=== PATIENT | female | born 1930 | race Caucasian/White ===

== ENCOUNTER 2016-10-16 17:57 | Inpatient (IN) | payer OTHER ==
[2016-10-16 18:00] VITALS: BMI 20.5
[2016-10-16] MEDS ORDERED: Nitroglycerin 2% Ointment Foilpak UD TOP STA (18:00)
[2016-10-16 18:39] LABS: BASO % 0.3 % (0.0-2.0); EOS % 0.5 % (0.0-4.0); HEMOGLOBIN 12.9 g/dL (11.0-16.0); LYMPH # 0.9 K/uL (1.0-4.3); LYMPH % 10.6 % (20.0-40.0); MEAN CORPUSCULAR HEMOGLOBIN 28.5 pg (27.0-31.0); MEAN CORPUSCULAR HGB CONC 33.9 g/dL (33.0-37.0); MEAN PLATELET VOLUME 7.5 fL (7.2-11.7); MONO # 0.5 K/uL (0.0-0.8); MONO % 6.4 % (0.0-10.0); NEUT % 82.2 % (50.0-75.0); RBC 4.54 Mil/uL (3.80-5.20); RED CELL DISTRIBUTION WIDTH 12.9 % (11.5-14.5); WHITE BLOOD COUNT 8.5 K/uL (4.8-10.8)
--- NOTE | 2016-10-16 18:44 | CT ---
EXAM: CT Head Without Intravenous Contrast CLINICAL HISTORY: 86 years old, female; Signs and symptoms; Altered mental status/memory loss; Confusion or disorientation; Additional info: Code stroke TECHNIQUE: Axial computed tomography images of the head/brain without intravenous contrast. This CT exam was performed using one or more of the following dose reduction techniques: automated exposure control, adjustment of the mA and/or kV according to patient size, and/or use of iterative reconstruction technique. Coronal and sagittal reformatted images were created and reviewed. EXAM DATE/TIME: 10/16/2016 5:59 PM COMPARISON: There are no prior studies for comparison. FINDINGS: Brain: There is dilatation of sulci gyri and ventricles. There is no midline shift. There is decreased attenuation in periventricular white matter. There are focal age indeterminate infarcts in periventricular white matter bilaterally. There is an age-indeterminate left basal ganglia lacunar infarct. There are no focal masses. There is an 11.3 x 7.9 mm hyperdense lesion in the right sylvian fissure,, image 168 series 602 There is a small focal area of increased attenuation in the left frontal lobe suggesting subarachnoid hemorrhage, image 135 series 602, image 24 series 2. Barrios-white differentiation is visualized. Ventricles: See above Bones: Cranial vault is intact. Soft tissues: unremarkable Sinuses: There is no acute sinusitis. Ears and mastoids: Middle ears and mastoids are unremarkable. Orbits: Orbital contents are unremarkable. IMPRESSION: Atrophy and small vessel disease; probable subarachnoid hemorrhage in the right sylvian fissure and small amount of subarachnoid blood blood in the left frontal lobe; age indeterminate periventricular white matter and left basal ganglia lacunar type infarcts
[2016-10-16 18:47] LABS: INR 1.1; PROTHROMBIN TIME 12.2 SECONDS (9.7-12.2)
[2016-10-16 18:48] LABS: ALBUMIN 4.2 g/dL (3.5-5.0)
[2016-10-16 18:51] LABS: ALB/GLOB RATIO 1.1 (1.0-2.1); GFR AFRICAN-AMERICAN > 60; GFR NON-AFRICAN AMERICAN > 60
[2016-10-16 18:52] LABS: ALT/SGPT 31 U/L (9-52); AST/SGOT 39 U/L (14-36); BLOOD UREA NITROGEN 16 mg/dL (7-17); CALCIUM 8.9 mg/dl (8.6-10.4)
[2016-10-16 18:53] LABS: HDL CHOLESTEROL 64 mg/dL (30-70)
[2016-10-16] MEDS ORDERED: Sodium Chloride 0.9% 1,000 ML IV STA (18:56)
[2016-10-16 19:05] LABS: LDL CHOLESTEROL 109 mg/dL (0-129)
[2016-10-16] MEDS ORDERED: Sodium Chloride 0.9% 1,000 ML ONE (19:36)
--- NOTE | 2016-10-16 19:48 | C.PDOC ---
History Of Present Illness 86 year old female who presents to the ER after she fell at home in her kitchen and suffered a contusion to the right side of her face. Patient had worsening mental status during the day; she reports also falling while standing yesterday. Patient reports she recently came from [place] a few months ago and is currently living with her family. Denies headache, nausea, or vomiting. Time Seen by Provider: 10/16/16 17:59 Chief Complaint (Nursing): Altered Mental Status History Per: Patient History/Exam Limitations: None Onset/Duration Of Symptoms: Hrs Current Symptoms Are (Timing): Still Present Usual Baseline: Unknown Use Of Anticoag/Antiplatelets: Unknown Speech Is: Normal Recent travel outside of the [place]: No Associated Symptoms: denies: Headache, Vomiting, Other (Nausea) Past Medical History Reviewed: Historical Data, Nursing Documentation, Vital Signs Vital Signs: Last Vital Signs Temp 97.6 F 10/16/16 18:01 Pulse 94 H 10/16/16 20:21 Resp 18 10/16/16 20:21 BP 178/85 H 10/16/16 20:21 Pulse Ox 100 10/16/16 22:39 - Medical History PMH: HTN Surgical History: No Surg Hx Family History: States: Unknown Family Hx - Social History Hx Alcohol Use: No Hx Substance Use: No - Immunization History Hx Tetanus Toxoid Vaccination: No Hx Influenza Vaccination: No Hx Pneumococcal Vaccination: No Review Of Systems Gastrointestinal: Negative for: Nausea, Vomiting Neurological: Negative for: Headache, Dizziness Physical Exam - Physical Exam Appears: Non-toxic, Confused, Other (C-collar in place) Skin: Normal Color, Warm, Dry Head: Atraumatic, Normacephalic Eye(s): bilateral: Normal Inspection, PERRL, EOMI Oral Mucosa: Moist Neck: Normal, No Midline Cervical Tenderness, No Paracervical Tenderness, Supple Chest: Symmetrical, No Tenderness Cardiovascular: Rhythm Regular, No Murmur Respiratory: Normal Breath Sounds, No Rales, No Rhonchi, No Wheezing Gastrointestinal/Abdominal: Soft, No Tenderness Neurological/Psych: Oriented x3, Normal Speech, Normal Cognition ED Course And Treatment - Laboratory Results Result Diagrams: 10/16/16 18:35 10/16/16 23:16 O2 Sat by Pulse Oximetry: 100 (Room air) Pulse Ox Interpretation: Normal - CT Scan/US CT Cervical Spine Other Rad Studies (CT/US): Read By Radiologist, Radiology Report Reviewed CT/US Interpretation: IMPRESSION: No acute findings CT Head Other Rad Studies (CT/US): Read By Radiologist, Radiology Report Reviewed CT/US Interpretation: IMPRESSION: Atrophy and small vessel disease; probable subarachnoid hemorrhage in the right. sylvian fissure and small amount of subarachnoid blood blood in the left frontal lobe; age. indeterminate periventricular white matter and left basal ganglia lacunar type infarcts Progress Note: Cervical spine CT, EKG, and CXR ordered. Nitroglyercin, potassium , and IV fluids administered. Code Stroke called at 6pm. Discussed with , Neurosurgery manager employee relations at 7pm. Discussed with , ICU internet site designer manager employee relations at 7:30pm. NIHSS Stroke Scale - Date/Time Evaluation Performed Date Performed: 10/16/16 Time Performed: 18:00 - How Severe is the Stoke Level of Consciousness: 2=Obtunded LOC to Questions: 2=Neither correct LOC to commands: 2=Neither correct Best Gaze: 2=Forced deviation Visual: 0=No visual loss Facial: 0=Normal Motor Arm - Left: 0=No drift Motor Arm - Right: 0=No drift Motor Leg - Left: 0=No drift Motor Leg - Right: 0=No drift Limb Ataxia: 0=Absent Sensory: 0=Normal Best Language: 2=Severe aphasia Dysarthia: 2=Severe, near unintelligible or worse Extinction & Inattention (Neglect): 0=Normal, no object Score: 12 Severity Of Stroke: 5-15= Moderate Stroke rTPA Inclusion/Exclusion - Refusal of Treatment Patient Refused Treatment: No - Inclusion Criteria for Altepase Patient is 18 years or Older: Yes Clinical DX Ischemic Stroke Cause Neurological Deficit: Yes Time of Onset Established Less Than 270 Mins Before TX Begin: Yes Risk/Benefit Discussed With Patient/Family Member Present: No - Exclusion Criteria for Altepase Uncontrolled Hypertension at Time of TX (SBP>185 or DBP>110): Yes Active Internal Bleeding: Yes Known Bleeding Diathesis: No Evidence of an Intracranial Hemorrhage: Yes Evidence Major Acute Infarct w/ Signs Greater Than 1/3 MCA: No Suspicion of Subarachnoid Bleed on PreTX Eval(CT: neg bleed): No Medical Decision Making Medical Decision Making: no pmd, came from [place] 2016 no regular meds scant diet, drinks lots of milk @ home. prefers DNR, today's items seem reversible. NTP and NiCARDIPINE drip for BP control, titrate in ICU pt seems dry, gentle hydration w NS @ 100 cc/hr, continue in ICU 1900: d/w Dr. Pacheco- NSGY, ok to repeat CT in AM, will follow C-spine CT on way to ICU- remove c-collar in ICU 1999: d/w Dr. Grigsby- Medicine customer professional- defers to Hospitalist 2015: d/w Dr. Yamil Joy, IM, ok to ICU Disposition Doctor Will See Patient In The: Hospital Counseled Patient/Family Regarding: Studies Performed, Diagnosis - Disposition Disposition: HOSPITALIZED Disposition Time: 20:00 Condition: FAIR - POA Present On Arrival: Falls Or Trauma Core Measure Indicators: Code Stroke - Clinical Impression Clinical Impression: Subarachnoid hemorrhage, Traumatic brain injury, Hyponatremia, Uncontrolled hypertension - Scribe Statement The provider has reviewed the documentation as recorded by the Scribe Higinio Esqueda All medical record entries made by the Scribe were at my direction and personally dictated by me. I have reviewed the chart and agree that the record accurately reflects my personal performance of the history, physical exam, medical decision making, and the department course for this patient. I have also personally directed, reviewed, and agree with the discharge instructions and disposition.
[2016-10-16 20:05] LABS: URINE BACTERIA RARE (<OCC); URINE BILIRUBIN NEGATIVE (NEGATIVE); URINE BLOOD NEGATIVE (NEGATIVE); URINE CLARITY Clear (Clear); URINE COLOR Yellow (YELLOW); URINE GLUCOSE (UA) NORMAL (Normal); URINE LEUKOCYTE ESTERASE NEG Leu/uL (Negative); URINE NITRATE NEGATIVE (NEGATIVE); URINE PROTEIN NEGATIVE (NEGATIVE); URINE UROBILINOGEN NORMAL mg/dL (0.2-1.0)
[2016-10-16] MEDS: niCARdipine IV 25 MG in Sodium Chloride 0.9% 240 ML IV SCH (20:30)
--- NOTE | 2016-10-16 21:01 | CP.CCUPN ---
CCU Subjective - Physician Review Events Since Last Encounter (Free Text): 10/16/16 23:47 The Patient was seen and examined at the bedside, Medical records reviewed, all clinical/lab/hemodynamic/radiographic data were reviewed and management issues were discussed and formulated, Events reviewed 86 Y/O F with PMHx of HTN who presents to the ER for evaluation of Altered Mental Status Patient had a mechanical fall at home in her kitchen resulting contusion to the right side of her face. Patient had worsening mental status during the day, Had Head CT scan in ER showing probable subarachnoid hemorrhage in the right. Labs revealed hyponatremia and hypokalemia Neurosurgery was consulted Started on normal saline and cardene drip Currently she is alert, awake, follow basic commands No signs of pain noted at this time, breathing comfortable and unlabored. She was admitted to ICU for further neurological work up and waxing and weaning of mental status, placed on Q1H Neuro check And to address uncontrolled BP CCU Objective - Vital Signs / Intake & Output Vital Signs (Last 4 hours): Vital Signs Pulse Resp BP Pulse Ox 10/16/16 20:16 100 10/16/16 19:56 83 12 99 10/16/16 19:25 79 15 165/82 H 99 - Medications Active Medications: Active Medications Generic Name Dose Route Start Last Admin Trade Name Freq PRN Reason Stop Dose Admin Sodium Chloride 1,000 mls @ 100 mls/hr 10/16/16 18:56 10/16/16 19:35 Sodium Chloride 0.9% IV 10/17/16 04:55 100 mls/hr .Q10H STA Administration Nicardipine HCl 25 mg/ Sodium 250 mls @ 50 mls/hr 10/16/16 19:15 10/16/16 20: 30 Chloride IV 5 mg/hr .Q5H RETA 50 mls/hr Protocol Administration 5 MG/HR - Patient Studies Lab Studies: Lab Studies 10/16/16 Range/Units 19:56 Urine Color Yellow (YELLOW) Urine Clarity Clear (Clear) Urine pH 7.0 (5.0-8.0) Ur Specific [place] 1.009 (1.003-1.030) Urine Protein Negative (NEGATIVE) mg/dL Urine Glucose (UA) Normal (Normal) mg/dL Urine Ketones Negative (NEGATIVE) mg/dL Urine Blood Negative (NEGATIVE) Urine Nitrate Negative (NEGATIVE) Urine Bilirubin Negative (NEGATIVE) Urine Urobilinogen Normal (0.2-1.0) mg/dL Ur Leukocyte Esterase Neg (Negative) S[place]/uL Urine WBC (Auto) 1 (0-5) /hpf Urine Bacteria Rare (<OCC) Laboratory Results - last 24 hr 10/16/16 19:56 Urine Color Yellow Urine Clarity Clear Urine pH 7.0 Ur Specific [place] 1.009 Urine Protein Negative Urine Glucose (UA) Normal Urine Ketones Negative Urine Blood Negative Urine Nitrate Negative Urine Bilirubin Negative Urine Urobilinogen Normal Ur Leukocyte Esterase Neg Urine WBC (Auto) 1 Urine Bacteria Rare Fingerstick Blood Sugar Results: 158 Assessment/Plan - Assessment and Plan (Free Text) Assessment: Subarachnoid hemorrhage, Traumatic brain injury Hyponatremia, Uncontrolled hypertension Admit to ICU, Admit to ICU for close observation and serial sodium level examination BP control with cardene drip Frequent Neuro check Neurology and neurosurgery consult Close monitoring of respiratory status Fall & aspiration and Seizure precautions NPO Speech and swallow evaluation PT/OT evaluation Neurology consult Consider EEG IV Hydrations Blood glucose checked, controlled Telemetry monitoring to assess for afib though low suspicion for embolus Repeat head CT scan HOB elevation 30 degrees DVT ppx: SCS Code: Full
[2016-10-16 23:33] LABS: ALBUMIN 3.9 g/dL (3.5-5.0)
[2016-10-16 23:36] LABS: ALT/SGPT 30 U/L (9-52); AST/SGOT 40 U/L (14-36); BLOOD UREA NITROGEN 12 mg/dL (7-17); GFR AFRICAN-AMERICAN > 60; GFR NON-AFRICAN AMERICAN > 60
[2016-10-16 23:37] LABS: CALCIUM 7.9 mg/dl (8.6-10.4)
[2016-10-17] MEDS: niCARdipine IV 25 MG in Sodium Chloride 0.9% 240 ML IV SCH ×5 (00:51→20:15)
[2016-10-17 04:06] LABS: ALBUMIN 3.7 g/dL (3.5-5.0)
[2016-10-17 04:09] LABS: ALT/SGPT 25 U/L (9-52); AST/SGOT 51 U/L (14-36); BLOOD UREA NITROGEN 9 mg/dL (7-17); GFR AFRICAN-AMERICAN > 60; GFR NON-AFRICAN AMERICAN > 60
[2016-10-17 04:10] LABS: CALCIUM 7.4 mg/dl (8.6-10.4)
[2016-10-17] MEDS ORDERED: Sodium Chloride 3% 500 ML IV ONE (06:00)
[2016-10-17 06:25] LABS: BASO % 0.2 % (0.0-2.0); EOS % 0.3 % (0.0-4.0); HEMOGLOBIN 12.2 g/dL (11.0-16.0); LYMPH # 0.9 K/uL (1.0-4.3); LYMPH % 9.7 % (20.0-40.0); MEAN CELL VOLUME 83.2 fL (81.0-99.0); MEAN CORPUSCULAR HEMOGLOBIN 28.4 pg (27.0-31.0); MEAN CORPUSCULAR HGB CONC 34.1 g/dL (33.0-37.0); MEAN PLATELET VOLUME 7.5 fL (7.2-11.7); MONO # 0.8 K/uL (0.0-0.8); MONO % 8.1 % (0.0-10.0); NEUT # 7.6 K/uL (1.8-7.0); NEUT % 81.7 % (50.0-75.0); PLATELET COUNT 260 K/uL (130-400); RBC 4.29 Mil/uL (3.80-5.20); RED CELL DISTRIBUTION WIDTH 12.8 % (11.5-14.5); WHITE BLOOD COUNT 9.3 K/uL (4.8-10.8)
--- NOTE | 2016-10-17 08:21 | RAD ---
HISTORY: code stroke COMPARISON: No prior. FINDINGS: LUNGS: Suboptimal study due to rotation. Suspicious for enlargement of the right hilum or perihilar opacity. PLEURA: No significant pleural effusion identified, no pneumothorax apparent. CARDIOVASCULAR: Normal. OSSEOUS STRUCTURES: No significant abnormalities. VISUALIZED UPPER ABDOMEN: Normal. OTHER FINDINGS: None. IMPRESSION: Baseline suboptimal study due to patient's rotation. Suspicious for mild enlargement of the right hilum or small perihilar opacity. Follow-up exam is suggested.
[2016-10-17 08:30] LABS: LYMPHOCYTE 9 % (20-40); MONOCYTE 7 % (0-10); NEUTROPHIL 84 % (50-75); PLATELET ESTIMATE NORMAL (NORMAL); TOTAL CELLS COUNTED 100
[2016-10-17 08:31] LABS: ANISOCYTOSIS SLIGHT; TOXIC GRANULATION PRESENT
[2016-10-17 08:32] LABS: LARGE PLATELETS PRESENT
[2016-10-17 08:36] LABS: BURR CELLS SLIGHT; GIANT PLATELETS PRESENT; POIKILOCYTOSIS SLIGHT
[2016-10-17 08:40] LABS: OVALOCYTES SLIGHT
--- NOTE | 2016-10-17 10:23 | CT ---
PROCEDURE: CT Cervical Spine without contrast HISTORY: Trauma status post fall change in MS neck tenderness COMPARISON: None available. TECHNIQUE: Axial computed tomography images were obtained of the cervical spine without the use of intravenous contrast. Coronal and sagittal reformatted images were created and reviewed. Radiation dose: Total exam DLP = 192.28 mGy-cm. This CT exam was performed using one or more of the following dose reduction techniques: Automated exposure control, adjustment of the mA and/or kV according to patient size, and/or use of iterative reconstruction technique. FINDINGS: VERTEBRAE: No fracture. Normal alignment. No destructive bony lesion. DISCS/SPINAL CANAL/NEURAL FORAMINA: There are moderate to severe spondylosis. Multilevel of osteophyte disc bulging complex seen associated with mild spinal and neural foraminal narrowing. There are also multilevel moderate to severe narrowing of the disc is space more prominent at C3-C4. PARASPINAL SOFT TISSUES: Unremarkable. OTHER FINDINGS: Almost complete opacification of the left sphenoid sinus IMPRESSION: No evidence of acute displaced fracture. Moderate to mildly severe spondylosis associated with multilevel osteophyte disc bulging complex which resulting in mild spinal and neural foraminal narrowing.
--- NOTE | 2016-10-17 11:00 | CT ---
PROCEDURE: CT HEAD WITHOUT CONTRAST. HISTORY: reassess traumatic SAH COMPARISON: Comparison is made to the previous study dated 10/16/2016 TECHNIQUE: Axial computed tomography images were obtained through the head/brain without intravenous contrast. Radiation dose: Total exam DLP = 859.93 mGy-cm. This CT exam was performed using one or more of the following dose reduction techniques: Automated exposure control, adjustment of the mA and/or kV according to patient size, and/or use of iterative reconstruction technique. FINDINGS: HEMORRHAGE: Interval increase in the size of the previously seen right temporal frontal parietal subarachnoid hemorrhage. The foci of subarachnoid hemorrhage are larger and more conspicuous compared to the previous study. There is subdural hematoma at the posterior right convexity adjacent to the occipital lobe and posterior parietal lobe with maximum thickness of 4.5 millimeter. BRAIN: No mass effect or edema. Moderate atrophy and moderate chronic microvascular white matter ischemic disease are again seen. VENTRICLES: Unremarkable. No hydrocephalus. CALVARIUM: Unremarkable. PARANASAL SINUSES: Partial opacification of the left sphenoid sinus is noted. MASTOID AIR CELLS: Unremarkable as visualized. No inflammatory changes. OTHER FINDINGS: None. IMPRESSION: Interval worsening of right brain subarachnoid hemorrhage with interval appearance of new foci of subarachnoid hemorrhage at the right frontal and parietal lobes compared to the previous exam. Small subdural hematoma at the posterior right convexity adjacent to the occipital lobe with maximum thickness of 4.5 millimeter. Follow-up reassessment is recommended. No CT evidence of territorial infarct. Moderate atrophy and moderate chronic microvascular white matter ischemic disease. These findings were reported to the nurse taking care of the patient Mrs. Sterling at 10:50 a.m. on 10/17/2016.
[2016-10-17 13:40] LABS: GFR AFRICAN-AMERICAN > 60; GFR NON-AFRICAN AMERICAN > 60
[2016-10-17 13:41] LABS: BLOOD UREA NITROGEN 8 mg/dL (7-17); CALCIUM 7.8 mg/dl (8.6-10.4)
[2016-10-17 13:47] LABS: OSMOLALITY,URINE 383 mosm/kg (300-1000)
[2016-10-17] MEDS ORDERED: Tolvaptan 15 MG TAB PO ONE (14:59)
--- NOTE | 2016-10-17 15:23 | CP.CCUPN ---
CCU Subjective - Physician Review Events Since Last Encounter (Free Text): 10/17/16 15:20 Patient is comatose, maintaining airway, but not following commands. CCU Objective - Vital Signs / Intake & Output Vital Signs (Last 4 hours): Vital Signs Temp Pulse Resp BP Pulse Ox 10/17/16 14:50 82 15 97 10/17/16 14:40 80 17 95 10/17/16 14:30 85 14 99 10/17/16 14:20 90 16 95 10/17/16 14:18 92 H 12 130/58 L 95 10/17/16 14:10 97 H 18 94 L 10/17/16 14:00 98 H 18 95 10/17/16 13:50 79 17 100 10/17/16 13:40 76 15 100 10/17/16 13:30 86 16 97 10/17/16 13:20 88 16 97 10/17/16 13:19 85 17 144/49 L 96 10/17/16 13:10 89 16 99 10/17/16 13:00 79 13 100 10/17/16 12:50 91 H 16 100 10/17/16 12:40 90 16 100 10/17/16 12:30 91 H 17 92 L 10/17/16 12:20 88 15 91 L 10/17/16 12:18 81 16 127/63 92 L 10/17/16 12:10 78 15 93 L 10/17/16 12:00 97.8 F 82 18 95 10/17/16 11:50 75 12 97 10/17/16 11:40 67 17 97 10/17/16 11:30 80 14 97 Intake and Output (Last 8hrs): Intake & Output 10/17/16 10/17/16 10/17/16 06:59 14:59 22:59 Intake Total 1067 656 Output Total 915 595 Balance 152 61 Weight 92 lb Intake: IV 225 250 Intake, IV Amount 842 386 Left Hand 100 10 Right Antecubital 721 84 Right Distal Port 21 292 Antecubital Oral 0 0 Tube Feeding 20 Output: Urine 915 595 Urethral (Gudino) 915 595 Stool 0 0 Emesis 0 0 Other: # Bowel Movements 0 - Physical Exam Physical Exam Limitations: Positive for: Altered Mental Status, Uncooperative Head: Positive for: Normocephalic. Negative for: Atraumatic (abrasions around face) Neck: Negative for: MIDLINE TENDERNESS Respiratory/Chest: Positive for: Clear to Auscultation, Good Air Exchange. Negative for: Respiratory Distress Cardiovascular: Positive for: Normal S1, S2, Irregular Rhythm Abdomen: Positive for: Normal Bowel Sounds. Negative for: Tenderness, Distention Psychiatric: Positive for: Alert. Negative for: Oriented x 3 (left arm contracture) - Medications Active Medications: Active Medications Generic Name Dose Route Start Last Admin Trade Name Freq PRN Reason Stop Dose Admin Nicardipine HCl 25 mg/ Sodium 250 mls @ 50 mls/hr 10/16/16 19:15 10/17/16 14: 28 Chloride IV 2.5 mg/hr .Q5H RETA 25 mls/hr Protocol Administration 5 MG/HR - Patient Studies Lab Studies: Lab Studies 10/17/16 10/17/16 10/17/16 Range/Units 13:15 13:15 13:15 WBC (4.8-10.8) K/uL RBC (3.80-5.20) Mil/uL Hgb (11.0-16.0) g/dL Hct (34.0-47.0) % MCV (81.0-99.0) fL MCH (27.0-31.0) pg MCHC (33.0-37.0) g/dL RDW (11.5-14.5) % Plt Count (130-400) K/uL MPV (7.2-11.7) fL Neut % (Auto) (50.0-75.0) % Lymph % (Auto) (20.0-40.0) % [place] % (Auto) (0.0-10.0) % Eos % (Auto) (0.0-4.0) % Baso % (Auto) (0.0-2.0) % Neut # (1.8-7.0) K/uL Lymph # (1.0-4.3) K/uL [place] # (0.0-0.8) K/uL Eos # (0.0-0.7) K/uL Baso # (0.0-0.2) K/uL Neutrophils % (Manual) (50-75) % Lymphocytes % (Manual) (20-40) % Monocytes % (Manual) (0-10) % Toxic Granulation Platelet Estimate (NORMAL) Large Platelets Giant Platelets Poikilocytosis (manual Anisocytosis (manual) Ovalocytes Thom Cells Sodium 119 L* (132-148) mmol/L Potassium 4.3 (3.6-5.2) mmol/L Chloride 84 L (98-107) mmol/L Carbon Dioxide 23 (22-30) mmol/L Anion Gap 16 (10-20) BUN 8 (7-17) mg/dL Creatinine 0.5 L (0.7-1.2) MG/DL Est GFR ( Amer) > 60 Est GFR (Non-Af Amer) > 60 Random Glucose 129 H (65-105) mg/dL Serum Osmolality 247 L (272-300) mosm/kg Calcium 7.8 L (8.6-10.4) mg/dl Total Bilirubin (0.2-1.3) mg/dL AST (14-36) U/L ALT (9-52) U/L Alkaline Phosphatase (38-126) U/L Total Protein (6.3-8.3) g/dL Albumin (3.5-5.0) g/dL Globulin (2.2-3.9) gm/dL Albumin/Globulin Ratio (1.0-2.1) Urine Color (YELLOW) Urine Clarity (Clear) Urine pH (5.0-8.0) Ur Specific [place] (1.003-1.030) Urine Protein (NEGATIVE) mg/dL Urine Glucose (UA) (Normal) mg/dL Urine Ketones (NEGATIVE) mg/dL Urine Blood (NEGATIVE) Urine Nitrate (NEGATIVE) Urine Bilirubin (NEGATIVE) Urine Urobilinogen (0.2-1.0) mg/dL Ur Leukocyte Esterase (Negative) [place]/uL Urine WBC (Auto) (0-5) /hpf Urine Bacteria (<OCC) Urine Osmolality 383 (300-1000) mosm/kg Ur Random Sodium 137 mmol/L 10/17/16 10/17/16 10/16/16 Range/Units 06:21 03:52 23:16 WBC 9.3 (4.8-10.8) K/uL RBC 4.29 (3.80-5.20) Mil/uL Hgb 12.2 (11.0-16.0) g/dL Hct 35.7 (34.0-47.0) % MCV 83.2 (81.0-99.0) fL MCH 28.4 (27.0-31.0) pg MCHC 34.1 (33.0-37.0) g/dL RDW 12.8 (11.5-14.5) % Plt Count 260 (130-400) K/uL MPV 7.5 (7.2-11.7) fL Neut % (Auto) 81.7 H (50.0-75.0) % Lymph % (Auto) 9.7 L (20.0-40.0) % [place] % (Auto) 8.1 (0.0-10.0) % Eos % (Auto) 0.3 (0.0-4.0) % Baso % (Auto) 0.2 (0.0-2.0) % Neut # 7.6 H (1.8-7.0) K/uL Lymph # 0.9 L (1.0-4.3) K/uL [place] # 0.8 (0.0-0.8) K/uL Eos # 0.0 (0.0-0.7) K/uL Baso # 0.0 (0.0-0.2) K/uL Neutrophils % (Manual) 84 H (50-75) % Lymphocytes % (Manual) 9 L (20-40) % Monocytes % (Manual) 7 (0-10) % Toxic Granulation Present Platelet Estimate Normal (NORMAL) Large Platelets Present Giant Platelets Present Poikilocytosis (manual Slight Anisocytosis (manual) Slight Ovalocytes Slight Thom Cells Slight Sodium 118 L* (132-148) mmol/L Potassium 3.2 L (3.6-5.2) mmol/L Chloride 83 L (98-107) mmol/L Carbon Dioxide 23 (22-30) mmol/L Anion Gap 15 (10-20) BUN 9 (7-17) mg/dL Creatinine 0.5 L (0.7-1.2) MG/DL Est GFR ( Amer) > 60 Est GFR (Non-Af Amer) > 60 Random Glucose 128 H (65-105) mg/dL Serum Osmolality 270 L (272-300) mosm/kg Calcium 7.4 L (8.6-10.4) mg/dl Total Bilirubin 1.0 (0.2-1.3) mg/dL AST 51 H D (14-36) U/L ALT 25 (9-52) U/L Alkaline Phosphatase 84 (38-126) U/L Total Protein 7.4 (6.3-8.3) g/dL Albumin 3.7 (3.5-5.0) g/dL Globulin 3.7 (2.2-3.9) gm/dL Albumin/Globulin Ratio 1.0 (1.0-2.1) Urine Color (YELLOW) Urine Clarity (Clear) Urine pH (5.0-8.0) Ur Specific [place] (1.003-1.030) Urine Protein (NEGATIVE) mg/dL Urine Glucose (UA) (Normal) mg/dL Urine Ketones (NEGATIVE) mg/dL Urine Blood (NEGATIVE) Urine Nitrate (NEGATIVE) Urine Bilirubin (NEGATIVE) Urine Urobilinogen (0.2-1.0) mg/dL Ur Leukocyte Esterase (Negative) [place]/uL Urine WBC (Auto) (0-5) /hpf Urine Bacteria (<OCC) Urine Osmolality (300-1000) mosm/kg Ur Random Sodium mmol/L 10/16/16 10/16/16 10/16/16 Range/Units 23:16 21:45 19:56 WBC (4.8-10.8) K/uL RBC (3.80-5.20) Mil/uL Hgb (11.0-16.0) g/dL Hct (34.0-47.0) % MCV (81.0-99.0) fL MCH (27.0-31.0) pg MCHC (33.0-37.0) g/dL RDW (11.5-14.5) % Plt Count (130-400) K/uL MPV (7.2-11.7) fL Neut % (Auto) (50.0-75.0) % Lymph % (Auto) (20.0-40.0) % [place] % (Auto) (0.0-10.0) % Eos % (Auto) (0.0-4.0) % Baso % (Auto) (0.0-2.0) % Neut # (1.8-7.0) K/uL Lymph # (1.0-4.3) K/uL [place] # (0.0-0.8) K/uL Eos # (0.0-0.7) K/uL Baso # (0.0-0.2) K/uL Neutrophils % (Manual) (50-75) % Lymphocytes % (Manual) (20-40) % Monocytes % (Manual) (0-10) % Toxic Granulation Platelet Estimate (NORMAL) Large Platelets Giant Platelets Poikilocytosis (manual Anisocytosis (manual) Ovalocytes [place] Cells Sodium 117 L* (132-148) mmol/L Potassium 3.1 L (3.6-5.2) mmol/L Chloride 80 L (98-107) mmol/L Carbon Dioxide 24 (22-30) mmol/L Anion Gap 16 (10-20) BUN 12 (7-17) mg/dL Creatinine 0.5 L (0.7-1.2) MG/DL Est GFR ( Amer) > 60 Est GFR (Non-Af Amer) > 60 Random Glucose 134 H (65-105) mg/dL Serum Osmolality (272-300) mosm/kg Calcium 7.9 L (8.6-10.4) mg/dl Total Bilirubin 0.9 (0.2-1.3) mg/dL AST 40 H (14-36) U/L ALT 30 (9-52) U/L Alkaline Phosphatase 91 (38-126) U/L Total Protein 7.6 (6.3-8.3) g/dL Albumin 3.9 (3.5-5.0) g/dL Globulin 3.7 (2.2-3.9) gm/dL Albumin/Globulin Ratio 1.0 (1.0-2.1) Urine Color Yellow (YELLOW) Urine Clarity Clear (Clear) Urine pH 7.0 (5.0-8.0) Ur Specific [place] 1.009 (1.003-1.030) Urine Protein Negative (NEGATIVE) mg/dL Urine Glucose (UA) Normal (Normal) mg/dL Urine Ketones Negative (NEGATIVE) mg/dL Urine Blood Negative (NEGATIVE) Urine Nitrate Negative (NEGATIVE) Urine Bilirubin Negative (NEGATIVE) Urine Urobilinogen Normal (0.2-1.0) mg/dL Ur Leukocyte Esterase Neg (Negative) [place]/uL Urine WBC (Auto) 1 (0-5) /hpf Urine Bacteria Rare (<OCC) Urine Osmolality 338 (300-1000) mosm/kg Ur Random Sodium mmol/L Laboratory Results - last 24 hr 10/16/16 10/16/16 10/16/16 19:56 21:45 23:16 WBC RBC Hgb Hct MCV MCH MCHC RDW Plt Count MPV Neut % (Auto) Lymph % (Auto) [place] % (Auto) Eos % (Auto) Baso % (Auto) Neut # Lymph # [place] # Eos # Baso # Neutrophils % (Manual) Lymphocytes % (Manual) Monocytes % (Manual) Toxic Granulation Platelet Estimate Large Platelets Giant Platelets Poikilocytosis (manual Anisocytosis (manual) Ovalocytes Thom Cells Sodium 117 L* Potassium 3.1 L Chloride 80 L Carbon Dioxide 24 Anion Gap 16 BUN 12 Creatinine 0.5 L Est GFR ( Amer) > 60 Est GFR (Non-Af Amer) > 60 Random Glucose 134 H Serum Osmolality Calcium 7.9 L Total Bilirubin 0.9 AST 40 H ALT 30 Alkaline Phosphatase 91 Total Protein 7.6 Albumin 3.9 Globulin 3.7 Albumin/Globulin Ratio 1.0 Urine Color Yellow Urine Clarity Clear Urine pH 7.0 Ur Specific [place] 1.009 Urine Protein Negative Urine Glucose (UA) Normal Urine Ketones Negative Urine Blood Negative Urine Nitrate Negative Urine Bilirubin Negative Urine Urobilinogen Normal Ur Leukocyte Esterase Neg Urine WBC (Auto) 1 Urine Bacteria Rare Urine Osmolality 338 Ur Random Sodium 10/16/16 10/17/16 10/17/16 23:16 03:52 06:21 WBC 9.3 RBC 4.29 Hgb 12.2 Hct 35.7 MCV 83.2 MCH 28.4 MCHC 34.1 RDW 12.8 Plt Count 260 MPV 7.5 Neut % (Auto) 81.7 H Lymph % (Auto) 9.7 L [place] % (Auto) 8.1 Eos % (Auto) 0.3 Baso % (Auto) 0.2 Neut # 7.6 H Lymph # 0.9 L [place] # 0.8 Eos # 0.0 Baso # 0.0 Neutrophils % (Manual) 84 H Lymphocytes % (Manual) 9 L Monocytes % (Manual) 7 Toxic Granulation Present Platelet Estimate Normal Large Platelets Present Giant Platelets Present Poikilocytosis (manual Slight Anisocytosis (manual) Slight Ovalocytes Slight Thom Cells Slight Sodium 118 L* Potassium 3.2 L Chloride 83 L Carbon Dioxide 23 Anion Gap 15 BUN 9 Creatinine 0.5 L Est GFR ( Amer) > 60 Est GFR (Non-Af Amer) > 60 Random Glucose 128 H Serum Osmolality 270 L Calcium 7.4 L Total Bilirubin 1.0 AST 51 H D ALT 25 Alkaline Phosphatase 84 Total Protein 7.4 Albumin 3.7 Globulin 3.7 Albumin/Globulin Ratio 1.0 Urine Color Urine Clarity Urine pH Ur Specific [place] Urine Protein Urine Glucose (UA) Urine Ketones Urine Blood Urine Nitrate Urine Bilirubin Urine Urobilinogen Ur Leukocyte Esterase Urine WBC (Auto) Urine Bacteria Urine Osmolality Ur Random Sodium 10/17/16 10/17/16 10/17/16 13:15 13:15 13:15 WBC RBC Hgb Hct MCV MCH MCHC RDW Plt Count MPV Neut % (Auto) Lymph % (Auto) [place] % (Auto) Eos % (Auto) Baso % (Auto) Neut # Lymph # [place] # Eos # Baso # Neutrophils % (Manual) Lymphocytes % (Manual) Monocytes % (Manual) Toxic Granulation Platelet Estimate Large Platelets Giant Platelets Poikilocytosis (manual Anisocytosis (manual) Ovalocytes [place] Cells Sodium 119 L* Potassium 4.3 Chloride 84 L Carbon Dioxide 23 Anion Gap 16 BUN 8 Creatinine 0.5 L Est GFR ( Amer) > 60 Est GFR (Non-Af Amer) > 60 Random Glucose 129 H Serum Osmolality 247 L Calcium 7.8 L Total Bilirubin AST ALT Alkaline Phosphatase Total Protein Albumin Globulin Albumin/Globulin Ratio Urine Color Urine Clarity Urine pH Ur Specific [place] Urine Protein Urine Glucose (UA) Urine Ketones Urine Blood Urine Nitrate Urine Bilirubin Urine Urobilinogen Ur Leukocyte Esterase Urine WBC (Auto) Urine Bacteria Urine Osmolality 383 Ur Random Sodium 137 Fingerstick Blood Sugar Results: 158 Review of Systems - Review of Systems Systems not reviewed;Unavailable: Altered Mental Status Assessment/Plan (1) Traumatic subarachnoid hemorrhage Assessment and plan: 86yo F. PMHx HTN. Patient had mechanical fall c/b traumatic SAH. Neuro: Patient is comatose, not following commands. Repeat head CT shows interval worsening of subarachnoid hemorrhage. Also seen is a small subdural hemorrhage in the right posterior parieto-occipital region. Neurology consulted , neurosurgery consulted. Pulm: No acute issues, patient breathing spontaneously on room air. Maintaining her own airway currently. CV: Hemodynamically stable. Hypertensive, controlling blood pressure with Cardene drip, maintaining systolic blood pressure between 120-140. Hem: No acute issues Renal: urine output within normal limits, will monitor. 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 Endo: No acute issues GI: Nothing by mouth, tube feedings started, Jevity at 20, goal to be determined by dietary. ID: No acute issues DVT proph - SCDs, no A/C with current bleed GI proph - Protonix IV gudino for strict I/O's during acute illness Code status - DNR/DNI Critical Care Time spent 35 minutes Multi-disciplinary rounds were performed with house staff, nursing, speech therapy, respiratory therapy, pharmacy and nutrition with integrated input from the primary team/attending and other consulting services. The documented time is cumulative and includes review of patient data/exams/labs/chart review and examination of the patient on rounds and throughout the day; time is exclusive of any procedures or teaching time. Current Visit: Yes Status: Acute
--- NOTE | 2016-10-17 21:23 | CP.PCM.HP ---
Past Patient History - Past Medical History & Family History Past Medical History?: No - Past Social History Smoking Status: Never Smoked - CARDIAC Hx Hypertension: Yes - PULMONARY Hx Respiratory Disorders: No - NEUROLOGICAL Hx Neurological Disorder: Yes Hx Syncope: Yes - HEENT Hx HEENT Problems: No - RENAL Hx Chronic Kidney Disease: No - ENDOCRINE/METABOLIC Hx Endocrine Disorders: No - HEMATOLOGICAL/ONCOLOGICAL Hx Blood Disorders: No - INTEGUMENTARY Hx Dermatological Problems: No - MUSCULOSKELETAL/RHEUMATOLOGICAL Hx Musculoskeletal Disorders: Yes Hx Falls: Yes - GASTROINTESTINAL Hx Gastrointestinal Disorders: No - GENITOURINARY/GYNECOLOGICAL Hx Genitourinary Disorders: No - PSYCHIATRIC Hx Substance Use: No - SURGICAL HISTORY Hx Surgeries: No - ANESTHESIA Hx Anesthesia: No Meds Allergies/Adverse Reactions: Allergies Allergy/AdvReac Type Severity Reaction Status Date / Time No Known Allergies Allergy Verified 10/16/16 17:58 Results - Vital Signs Recent Vital Signs: Last Vital Signs Temp 97.6 F 10/17/16 20:00 Pulse 79 10/17/16 21:18 Resp 16 10/17/16 21:18 BP 101/62 10/17/16 21:18 Pulse Ox 100 10/17/16 21:18 - Labs Result Diagrams: 10/17/16 06:21 10/17/16 13:15 Labs: Laboratory Results - last 24 hr 10/16/16 10/16/16 10/16/16 21:45 23:16 23:16 WBC RBC Hgb Hct MCV MCH MCHC RDW Plt Count MPV Neut % (Auto) Lymph % (Auto) [place] % (Auto) Eos % (Auto) Baso % (Auto) Neut # Lymph # [place] # Eos # Baso # Neutrophils % (Manual) Lymphocytes % (Manual) Monocytes % (Manual) Toxic Granulation Platelet Estimate Large Platelets Giant Platelets Poikilocytosis (manual Anisocytosis (manual) Ovalocytes Thom Cells Sodium 117 L* Potassium 3.1 L Chloride 80 L Carbon Dioxide 24 Anion Gap 16 BUN 12 Creatinine 0.5 L Est GFR ( Amer) > 60 Est GFR (Non-Af Amer) > 60 Random Glucose 134 H Serum Osmolality 270 L Calcium 7.9 L Total Bilirubin 0.9 AST 40 H ALT 30 Alkaline Phosphatase 91 Total Protein 7.6 Albumin 3.9 Globulin 3.7 Albumin/Globulin Ratio 1.0 Free T4 TSH 3rd Generation Urine Osmolality 338 Ur Random Sodium 0710/17/16 10/17/16 03:52 06:21 13:15 WBC 9.3 RBC 4.29 Hgb 12.2 Hct 35.7 MCV 83.2 MCH 28.4 MCHC 34.1 RDW 12.8 Plt Count 260 MPV 7.5 Neut % (Auto) 81.7 H Lymph % (Auto) 9.7 L [place] % (Auto) 8.1 Eos % (Auto) 0.3 Baso % (Auto) 0.2 Neut # 7.6 H Lymph # 0.9 L [place] # 0.8 Eos # 0.0 Baso # 0.0 Neutrophils % (Manual) 84 H Lymphocytes % (Manual) 9 L Monocytes % (Manual) 7 Toxic Granulation Present Platelet Estimate Normal Large Platelets Present Giant Platelets Present Poikilocytosis (manual Slight Anisocytosis (manual) Slight Ovalocytes Slight [place] Cells Slight Sodium 118 L* Potassium 3.2 L Chloride 83 L Carbon Dioxide 23 Anion Gap 15 BUN 9 Creatinine 0.5 L Est GFR ( Amer) > 60 Est GFR (Non-Af Amer) > 60 Random Glucose 128 H Serum Osmolality 247 L Calcium 7.4 L Total Bilirubin 1.0 AST 51 H D ALT 25 Alkaline Phosphatase 84 Total Protein 7.4 Albumin 3.7 Globulin 3.7 Albumin/Globulin Ratio 1.0 Free T4 TSH 3rd Generation Urine Osmolality Ur Random Sodium 10/17/16 10/17/16 10/17/16 13:15 13:15 19:36 WBC RBC Hgb Hct MCV MCH MCHC RDW Plt Count MPV Neut % (Auto) Lymph % (Auto) [place] % (Auto) Eos % (Auto) Baso % (Auto) Neut # Lymph # [place] # Eos # Baso # Neutrophils % (Manual) Lymphocytes % (Manual) Monocytes % (Manual) Toxic Granulation Platelet Estimate Large Platelets Giant Platelets Poikilocytosis (manual Anisocytosis (manual) Ovalocytes [place] Cells Sodium 119 L* Potassium 4.3 Chloride 84 L Carbon Dioxide 23 Anion Gap 16 BUN 8 Creatinine 0.5 L Est GFR ( Amer) > 60 Est GFR (Non-Af Amer) > 60 Random Glucose 129 H Serum Osmolality Calcium 7.8 L Total Bilirubin AST ALT Alkaline Phosphatase Total Protein Albumin Globulin Albumin/Globulin Ratio Free T4 TSH 3rd Generation 3.91 Urine Osmolality 383 Ur Random Sodium 137 10/17/16 19:36 WBC RBC Hgb Hct MCV MCH MCHC RDW Plt Count MPV Neut % (Auto) Lymph % (Auto) [place] % (Auto) Eos % (Auto) Baso % (Auto) Neut # Lymph # [place] # Eos # Baso # Neutrophils % (Manual) Lymphocytes % (Manual) Monocytes % (Manual) Toxic Granulation Platelet Estimate Large Platelets Giant Platelets Poikilocytosis (manual Anisocytosis (manual) Ovalocytes [place] Cells Sodium Potassium Chloride Carbon Dioxide Anion Gap BUN Creatinine Est GFR ( Amer) Est GFR (Non-Af Amer) Random Glucose Serum Osmolality Calcium Total Bilirubin AST ALT Alkaline Phosphatase Total Protein Albumin Globulin Albumin/Globulin Ratio Free T4 1.23 TSH 3rd Generation Urine Osmolality Ur Random Sodium
[2016-10-18] MEDS: niCARdipine IV 25 MG in Sodium Chloride 0.9% 240 ML IV SCH ×4 (01:15→16:57)
[2016-10-18 07:07] LABS: HEMOGLOBIN 13.3 g/dL (11.0-16.0); MEAN CELL VOLUME 84.8 fL (81.0-99.0); MEAN CORPUSCULAR HEMOGLOBIN 28.7 pg (27.0-31.0); MEAN CORPUSCULAR HGB CONC 33.8 g/dL (33.0-37.0); MEAN PLATELET VOLUME 7.2 fL (7.2-11.7); RBC 4.64 Mil/uL (3.80-5.20); RED CELL DISTRIBUTION WIDTH 13.3 % (11.5-14.5)
[2016-10-18 07:24] LABS: ALBUMIN 3.7 g/dL (3.5-5.0)
[2016-10-18 07:27] LABS: ALT/SGPT 33 U/L (9-52); AST/SGOT 59 U/L (14-36); BLOOD UREA NITROGEN 11 mg/dL (7-17); GFR AFRICAN-AMERICAN > 60; GFR NON-AFRICAN AMERICAN > 60
[2016-10-18 07:28] LABS: CALCIUM 8.6 mg/dl (8.6-10.4)
--- NOTE | 2016-10-18 07:59 | CP.CCUPN ---
CCU Objective - Vital Signs / Intake & Output Vital Signs (Last 4 hours): Vital Signs Temp Pulse Resp BP Pulse Ox 10/18/16 07:30 75 15 95 10/18/16 07:20 60 17 99 10/18/16 07:18 64 16 142/59 L 98 10/18/16 07:10 65 16 97 10/18/16 07:00 81 20 99 10/18/16 06:50 69 16 96 10/18/16 06:40 79 17 96 10/18/16 06:30 63 17 100 10/18/16 06:20 67 17 99 10/18/16 06:18 63 16 153/69 H 100 10/18/16 06:10 65 17 98 10/18/16 06:00 66 17 100 10/18/16 05:50 69 17 99 10/18/16 05:40 66 17 99 10/18/16 05:30 66 16 98 10/18/16 05:20 67 16 100 10/18/16 05:18 80 13 136/75 99 10/18/16 05:10 65 17 98 10/18/16 05:00 63 17 98 10/18/16 04:50 71 18 99 10/18/16 04:40 70 17 98 10/18/16 04:30 79 14 98 10/18/16 04:20 69 17 99 10/18/16 04:19 69 17 143/69 100 10/18/16 04:10 70 16 99 10/18/16 04:00 97.5 F L 76 14 100 Intake and Output (Last 8hrs): Intake & Output 10/17/16 10/18/16 10/18/16 22:59 06:59 14:59 Intake Total 320 215 30 Output Total 430 375 60 Balance -110 -160 -30 Intake: Intake, IV Amount 125 Right Distal Port 125 Antecubital Tube Feeding 145 215 30 Other 50 Output: Urine 430 375 60 Urethral (Miguel) 430 375 60 Other: # Bowel Movements 0 0 - Physical Exam Head: Positive for: Normocephalic. Negative for: Atraumatic (abrasions around face) Neck: Negative for: MIDLINE TENDERNESS Respiratory/Chest: Positive for: Clear to Auscultation, Good Air Exchange. Negative for: Respiratory Distress Cardiovascular: Positive for: Normal S1, S2, Irregular Rhythm Abdomen: Positive for: Normal Bowel Sounds. Negative for: Tenderness, Distention Psychiatric: Positive for: Alert. Negative for: Oriented x 3 (left arm contracture) - Medications Active Medications: Active Medications Generic Name Dose Route Start Last Admin Trade Name June PRN Reason Stop Dose Admin Nicardipine HCl 25 mg/ Sodium 250 mls @ 50 mls/hr 10/16/16 19:15 10/18/16 06: 15 Chloride IV Not Given .Q5H RETA Protocol 5 MG/HR - Patient Studies Lab Studies: Lab Studies 10/18/16 10/18/16 10/17/16 Range/Units 07:01 07:01 19:36 WBC 10.0 (4.8-10.8) K/uL RBC 4.64 (3.80-5.20) Mil/uL Hgb 13.3 (11.0-16.0) g/dL Hct 39.3 (34.0-47.0) % MCV 84.8 (81.0-99.0) fL MCH 28.7 (27.0-31.0) pg MCHC 33.8 (33.0-37.0) g/dL RDW 13.3 (11.5-14.5) % Plt Count 292 (130-400) K/uL MPV 7.2 (7.2-11.7) fL Neutrophils % (Manual) (50-75) % Lymphocytes % (Manual) (20-40) % Monocytes % (Manual) (0-10) % Toxic Granulation Platelet Estimate (NORMAL) Large Platelets Giant Platelets Poikilocytosis (manual Anisocytosis (manual) Ovalocytes Thom Cells Sodium 130 L (132-148) mmol/L Potassium 3.4 L (3.6-5.2) mmol/L Chloride 91 L (98-107) mmol/L Carbon Dioxide 25 (22-30) mmol/L Anion Gap 17 (10-20) BUN 11 (7-17) mg/dL Creatinine 0.6 L (0.7-1.2) MG/DL Est GFR ( Amer) > 60 Est GFR (Non-Af Amer) > 60 Random Glucose 162 H (65-105) mg/dL Serum Osmolality (272-300) mosm/kg Calcium 8.6 (8.6-10.4) mg/dl Total Bilirubin 1.1 (0.2-1.3) mg/dL AST 59 H (14-36) U/L ALT 33 (9-52) U/L Alkaline Phosphatase 78 (38-126) U/L Total Protein 7.3 (6.3-8.3) g/dL Albumin 3.7 (3.5-5.0) g/dL Globulin 3.6 (2.2-3.9) gm/dL Albumin/Globulin Ratio 1.0 (1.0-2.1) Free T4 1.23 (0.78-2.19) ng/dL TSH 3rd Generation (0.46-4.68) mIU/L Urine Osmolality (300-1000) mosm/kg Ur Random Sodium mmol/L 10/17/16 10/17/16 10/17/16 Range/Units 19:36 13:15 13:15 WBC (4.8-10.8) K/uL RBC (3.80-5.20) Mil/uL Hgb (11.0-16.0) g/dL Hct (34.0-47.0) % MCV (81.0-99.0) fL MCH (27.0-31.0) pg MCHC (33.0-37.0) g/dL RDW (11.5-14.5) % Plt Count (130-400) K/uL MPV (7.2-11.7) fL Neutrophils % (Manual) (50-75) % Lymphocytes % (Manual) (20-40) % Monocytes % (Manual) (0-10) % Toxic Granulation Platelet Estimate (NORMAL) Large Platelets Giant Platelets Poikilocytosis (manual Anisocytosis (manual) Ovalocytes Thom Cells Sodium 119 L* (132-148) mmol/L Potassium 4.3 (3.6-5.2) mmol/L Chloride 84 L (98-107) mmol/L Carbon Dioxide 23 (22-30) mmol/L Anion Gap 16 (10-20) BUN 8 (7-17) mg/dL Creatinine 0.5 L (0.7-1.2) MG/DL Est GFR ( Amer) > 60 Est GFR (Non-Af Amer) > 60 Random Glucose 129 H (65-105) mg/dL Serum Osmolality (272-300) mosm/kg Calcium 7.8 L (8.6-10.4) mg/dl Total Bilirubin (0.2-1.3) mg/dL AST (14-36) U/L ALT (9-52) U/L Alkaline Phosphatase (38-126) U/L Total Protein (6.3-8.3) g/dL Albumin (3.5-5.0) g/dL Globulin (2.2-3.9) gm/dL Albumin/Globulin Ratio (1.0-2.1) Free T4 (0.78-2.19) ng/dL TSH 3rd Generation 3.91 (0.46-4.68) mIU/L Urine Osmolality 383 (300-1000) mosm/kg Ur Random Sodium 137 mmol/L 10/17/16 10/17/16 Range/Units 13:15 06:21 WBC (4.8-10.8) K/uL RBC (3.80-5.20) Mil/uL Hgb (11.0-16.0) g/dL Hct (34.0-47.0) % MCV (81.0-99.0) fL MCH (27.0-31.0) pg MCHC (33.0-37.0) g/dL RDW (11.5-14.5) % Plt Count (130-400) K/uL MPV (7.2-11.7) fL Neutrophils % (Manual) 84 H (50-75) % Lymphocytes % (Manual) 9 L (20-40) % Monocytes % (Manual) 7 (0-10) % Toxic Granulation Present Platelet Estimate Normal (NORMAL) Large Platelets Present Giant Platelets Present Poikilocytosis (manual Slight Anisocytosis (manual) Slight Ovalocytes Slight Holmes Cells Slight Sodium (132-148) mmol/L Potassium (3.6-5.2) mmol/L Chloride (98-107) mmol/L Carbon Dioxide (22-30) mmol/L Anion Gap (10-20) BUN (7-17) mg/dL Creatinine (0.7-1.2) MG/DL Est GFR ( Amer) Est GFR (Non-Af Amer) Random Glucose (65-105) mg/dL Serum Osmolality 247 L (272-300) mosm/kg Calcium (8.6-10.4) mg/dl Total Bilirubin (0.2-1.3) mg/dL AST (14-36) U/L ALT (9-52) U/L Alkaline Phosphatase (38-126) U/L Total Protein (6.3-8.3) g/dL Albumin (3.5-5.0) g/dL Globulin (2.2-3.9) gm/dL Albumin/Globulin Ratio (1.0-2.1) Free T4 (0.78-2.19) ng/dL TSH 3rd Generation (0.46-4.68) mIU/L Urine Osmolality (300-1000) mosm/kg Ur Random Sodium mmol/L Laboratory Results - last 24 hr 10/17/16 10/17/16 10/17/16 06:21 13:15 13:15 WBC RBC Hgb Hct MCV MCH MCHC RDW Plt Count MPV Neutrophils % (Manual) 84 H Lymphocytes % (Manual) 9 L Monocytes % (Manual) 7 Toxic Granulation Present Platelet Estimate Normal Large Platelets Present Giant Platelets Present Poikilocytosis (manual Slight Anisocytosis (manual) Slight Ovalocytes Slight Holmes Cells Slight Sodium Potassium Chloride Carbon Dioxide Anion Gap BUN Creatinine Est GFR ( Amer) Est GFR (Non-Af Amer) Random Glucose Serum Osmolality 247 L Calcium Total Bilirubin AST ALT Alkaline Phosphatase Total Protein Albumin Globulin Albumin/Globulin Ratio Free T4 TSH 3rd Generation Urine Osmolality 383 Ur Random Sodium 137 10/17/16 10/17/16 10/17/16 13:15 19:36 19:36 WBC RBC Hgb Hct MCV MCH MCHC RDW Plt Count MPV Neutrophils % (Manual) Lymphocytes % (Manual) Monocytes % (Manual) Toxic Granulation Platelet Estimate Large Platelets Giant Platelets Poikilocytosis (manual Anisocytosis (manual) Ovalocytes Thom Cells Sodium 119 L* Potassium 4.3 Chloride 84 L Carbon Dioxide 23 Anion Gap 16 BUN 8 Creatinine 0.5 L Est GFR ( Amer) > 60 Est GFR (Non-Af Amer) > 60 Random Glucose 129 H Serum Osmolality Calcium 7.8 L Total Bilirubin AST ALT Alkaline Phosphatase Total Protein Albumin Globulin Albumin/Globulin Ratio Free T4 1.23 TSH 3rd Generation 3.91 Urine Osmolality Ur Random Sodium 10/18/16 10/18/16 07:01 07:01 WBC 10.0 RBC 4.64 Hgb 13.3 Hct 39.3 MCV 84.8 MCH 28.7 MCHC 33.8 RDW 13.3 Plt Count 292 MPV 7.2 Neutrophils % (Manual) Lymphocytes % (Manual) Monocytes % (Manual) Toxic Granulation Platelet Estimate Large Platelets Giant Platelets Poikilocytosis (manual Anisocytosis (manual) Ovalocytes Holmes Cells Sodium 130 L Potassium 3.4 L Chloride 91 L Carbon Dioxide 25 Anion Gap 17 BUN 11 Creatinine 0.6 L Est GFR ( Amer) > 60 Est GFR (Non-Af Amer) > 60 Random Glucose 162 H Serum Osmolality Calcium 8.6 Total Bilirubin 1.1 AST 59 H ALT 33 Alkaline Phosphatase 78 Total Protein 7.3 Albumin 3.7 Globulin 3.6 Albumin/Globulin Ratio 1.0 Free T4 TSH 3rd Generation Urine Osmolality Ur Random Sodium Fingerstick Blood Sugar Results: 158
--- NOTE | 2016-10-18 11:25 | RAD ---
HISTORY: r/o pneumonia COMPARISON: Chest x-ray performed 10/16/16 TECHNIQUE: Chest, one view. FINDINGS: Nasogastric tube extends expected location of the stomach. LUNGS: Lung apices excluded from view. Chronic appearing interstitial markings. Superimposed infection or edema not excluded. Right lung base atelectasis or pneumonia. Small right pleural effusion cannot be excluded. No definite pneumothorax. Please note that chest x-ray has limited sensitivity for the detection of pulmonary masses. CARDIOVASCULAR: Heart size appears top normal. Ectatic aorta. OSSEOUS STRUCTURES: Osseous demineralization. Degenerative changes. VISUALIZED UPPER ABDOMEN: Unremarkable. OTHER FINDINGS: None. IMPRESSION: Nasogastric tube. Lung apices excluded from view. Chronic appearing interstitial markings. Superimposed infection or edema not excluded. Right lung base atelectasis or pneumonia. Small right pleural effusion cannot be excluded.
--- NOTE | 2016-10-18 11:55 | CP.PCM.PN ---
Subjective - Date & Time of Evaluation Date of Evaluation: 10/18/16 Time of Evaluation: 15:40 - Subjective Subjective: clinically same Objective - Vital Signs/Intake and Output Vital Signs (last 24 hours): Temp Pulse Resp BP Pulse Ox 97.7 F 76 16 157/73 H 100 10/18/16 08:00 10/18/16 09:00 10/18/16 09:00 10/18/16 08:18 10/18/16 09:00 Intake and Output: 10/18/16 10/18/16 06:59 18:59 Intake Total 350 100 Output Total 540 130 Balance -190 -30 - Medications Medications: Current Medications Nicardipine HCl 25 mg/ Sodium (Chloride) 250 mls @ 50 mls/hr IV .Q5H RETA; 5 MG/ HR PRN Reason: Protocol Last Admin: 10/18/16 06:15 Dose: Not Given - Labs Labs: 10/18/16 07:01 10/18/16 07:01 PT 12.2 SECONDS (9.7-12.2) 10/16/16 18:35 INR 1.1 10/16/16 18:35 APTT 34 SECONDS (21-34) 10/16/16 18:35 - Constitutional Appears: Well - Head Exam Head Exam: ATRAUMATIC, NORMAL INSPECTION, NORMOCEPHALIC - Eye Exam Eye Exam: EOMI, Normal appearance, PERRL Pupil Exam: NORMAL ACCOMODATION, PERRL - ENT Exam ENT Exam: Mucous Membranes Moist, Normal Exam - Neck Exam Neck Exam: Full ROM, Normal Inspection. absent: Lymphadenopathy - Respiratory Exam Respiratory Exam: Decreased Breath Sounds - Cardiovascular Exam Cardiovascular Exam: REGULAR RHYTHM, +S1, +S2 - GI/Abdominal Exam GI & Abdominal Exam: Soft, Diminished Bowel Sounds - Rectal Exam Rectal Exam: Deferred
--- NOTE | 2016-10-18 13:45 | CT ---
PROCEDURE: CT HEAD WITHOUT CONTRAST. HISTORY: s/p SAH COMPARISON: Comparison made with CT scan brain dated 10/17/2016 and 10/16/2016. CT TECHNIQUE: Axial computed tomography images were obtained through the head/brain without intravenous contrast. Radiation dose: Total exam DLP = 783.42 mGy-cm. This CT exam was performed using one or more of the following dose reduction techniques: Automated exposure control, adjustment of the mA and/or kV according to patient size, and/or use of iterative reconstruction technique. FINDINGS: HEMORRHAGE: Re- demonstrated are bilateral subdural hygromas slightly increased in size from prior study 10/17/2016 and moderately increased in size from prior study 10/16/2016. The subdural hygromas exert mild compressive effects on both cerebral hemispheres with no significant midline shift due to offsetting mass-effect. Questionable small membranes within the frontal subdural hygromas. There has been interval decrease in the amount of subarachnoid hemorrhage scattered about the right cerebral hemisphere. Small amount of subarachnoid hemorrhage left cerebral hemisphere has also decreased. No new hemorrhages seen. BRAIN: Moderate to fairly significant diffuse/ confluent chronic white matter ischemic changes are again seen extending peripherally into the deep and subcortical white matter both cerebral hemispheres. There is moderate ex vacuo dilatation of the ventricles with the left ventricle of remaining larger than the right-side felt to represent an anatomic variation Mild vascular calcifications again noted. VENTRICLES: Moderate on ex vacuo dilatation of the ventricles as above however no evidence of obstructive hydrocephalus CALVARIUM: There are no acute calvarial fractures. PARANASAL SINUSES: Re- demonstrated is rightward deviation of the nasal septum with questionable old healed fracture deformities of the nasal bones. The there is sclerosis and thickening of the posterolateral wall right maxillary antrum consistent with chronic inflammation. Partial opacification left chamber sphenoid sinus MASTOID AIR CELLS: Unremarkable as visualized. No inflammatory changes. OTHER FINDINGS: Re- demonstrated are changes of bilateral cataract surgery. IMPRESSION: Interval slight increased bilateral subdural hygromas. Decreased amount of subarachnoid hemorrhage as above. Of obstructive hydrocephalus. Moderate to fairly significant chronic white matter ischemic changes. Moderate volume loss. See above discussion for additional findings and details.
--- NOTE | 2016-10-19 05:09 | CON ---
DATE: 10/18/2016 CHIEF COMPLAINT: Altered mental status. HISTORY OF PRESENT ILLNESS: History was obtained from medical record. This is an 86-year-old woman with history of hypertension who presented to the ER. Has had a mechanical fall in the kitchen where she suffered a contusion to the right side of the head. She is currently in the ICU where she had a CAT scan of the head showing subarachnoid hemorrhage and right occipital subdural hemorrhage. She had a repeat CAT scan today which showed bilateral subdural hygromas and decreased amount of subarachnoid hemorrhage compared to initial CAT scan in the right cerebral hemisphere. There is a very small amount of subarachnoid hemorrhage in the left cerebral hemisphere which has also been decreased. No new hemorrhages seen and no obstructive hydrocephalus seen. Neurosurgery was called, she had no neurosurgical intervention. At this time, she is in the ICU will be monitored, her blood pressures are controlled. No seizure-like activity. She is following commands much more. Her sodium was initially 119 which was hyponatremic and has slowly then increased to 130 which is today. PAST MEDICAL HISTORY: Hypertension. ALLERGIES: No know drug allergies. FAMILY HISTORY: Noncontributory. SOCIAL HISTORY: No illicit drug use, smoking or EtOH abuse. MEDICATIONS: Reviewed by nurse reconciliation sheet. PHYSICAL EXAMINATION GENERAL: The patient is drowsy, in no acute distress. VITAL SIGNS: Temperature of 97, pulse rate of 67, blood pressure of 153/67, respiratory rate of 16 and oxygen saturation was 99% via nasal cannula. HEENT: Atraumatic, normocephalic. PERRLA. Extraocular muscles are intact. NECK: Supple. No JVD. No adenopathy noted. HEART: S1 and S2. Normal rate and rhythm. No murmur, rubs, or gallops. LUNGS: Clear to auscultation. No adventitious sounds. ABDOMEN: Soft, nontender, nondistended. Bowel sounds are present. EXTREMITIES: No clubbing. No cyanosis. Peripheral pulses 2+. NEUROLOGIC: The patient is drowsy, in no acute distress. Speech is hyperphonic. Cranial nerves II through XII intact. Motor exam is . Moves all extremities equally. Sensory exam: Withdraws to noxious stimulus. DTRs are 1+ throughout. Co-ordination and gait deferred for now. She is much more responsive today than yesterday. LABORATORY DATA: Sodium is 130, potassium 3.4, chloride 91, carbon di-oxide is 25, BUN is 11, creatinine 0.6, glucose 162. ASSESSMENT AND PLAN: This is an 86-year-old woman with a history of hypertension and mechanical fall in her kitchen, hit the right side of the head, developed subarachnoid hemorrhages as well as subdural which has decreased in size according to the repeat CAT scan today. She is more awake and moving all extremities, and much more responsive than prior. Her sodium level was 130 today, which is much better than before of 119. At this time, her subdural and subarachnoid hemorrhages resulted from a traumatic mechanical fall. At this time, I recommend: 1. Monitor electrolytes and correct accordingly. 2. Keep the systolic blood pressure in the 130 to 140 mmHg. 3. No antiplatelet medications such as aspirin for at least 2 weeks from the onset of the bleed. 4. Get a physical therapy evaluation and continue with current medical management. Thank you for this consult. Garcia Reyes MD
[2016-10-19 06:44] LABS: BASO # 0.2 K/uL (0.0-0.2); BASO % 1.3 % (0.0-2.0); EOS # 0.2 K/uL (0.0-0.7); EOS % 1.5 % (0.0-4.0); HEMOGLOBIN 13.1 g/dL (11.0-16.0); LYMPH # 0.6 K/uL (1.0-4.3); LYMPH % 4.8 % (20.0-40.0); MEAN CELL VOLUME 86.3 fL (81.0-99.0); MEAN CORPUSCULAR HEMOGLOBIN 28.8 pg (27.0-31.0); MEAN CORPUSCULAR HGB CONC 33.4 g/dL (33.0-37.0); MEAN PLATELET VOLUME 7.9 fL (7.2-11.7); MONO # 0.7 K/uL (0.0-0.8); MONO % 5.5 % (0.0-10.0); NEUT # 10.2 K/uL (1.8-7.0); NEUT % 86.9 % (50.0-75.0); NRBC % 0.2 % (0.0-2.0); PLATELET COUNT 288 K/uL (130-400); RBC 4.54 Mil/uL (3.80-5.20); RED CELL DISTRIBUTION WIDTH 13.6 % (11.5-14.5); WHITE BLOOD COUNT 11.8 K/uL (4.8-10.8)
[2016-10-19 06:55] LABS: ALBUMIN 3.5 g/dL (3.5-5.0)
[2016-10-19 06:58] LABS: AST/SGOT 36 U/L (14-36); GFR AFRICAN-AMERICAN > 60; GFR NON-AFRICAN AMERICAN > 60
[2016-10-19 06:59] LABS: ALB/GLOB RATIO 0.9 (1.0-2.1); ALT/SGPT 32 U/L (9-52); BLOOD UREA NITROGEN 20 mg/dL (7-17)
[2016-10-19 08:18] LABS: EOSINOPHIL 2 % (0-4); LYMPHOCYTE 6 % (20-40); MONOCYTE 4 % (0-10); NEUTROPHIL 88 % (50-75); PLATELET ESTIMATE NORMAL (NORMAL); TOTAL CELLS COUNTED 100
--- NOTE | 2016-10-19 12:34 | CP.PCM.PN ---
Subjective - Date & Time of Evaluation Date of Evaluation: 10/19/16 Time of Evaluation: 16:20 - Subjective Subjective: clinically same Objective - Vital Signs/Intake and Output Vital Signs (last 24 hours): Temp Pulse Resp BP Pulse Ox 97.7 F 82 22 120/71 92 L 10/19/16 04:00 10/19/16 07:10 10/19/16 07:10 10/19/16 04:00 10/19/16 07:10 Intake and Output: 10/19/16 10/19/16 06:59 18:59 Intake Total 630 40 Output Total 465 35 Balance 165 5 - Labs Labs: 10/19/16 06:35 10/19/16 06:35 PT 12.2 SECONDS (9.7-12.2) 10/16/16 18:35 INR 1.1 10/16/16 18:35 APTT 34 SECONDS (21-34) 10/16/16 18:35 - Constitutional Appears: Well - Head Exam Head Exam: ATRAUMATIC, NORMAL INSPECTION, NORMOCEPHALIC - Eye Exam Eye Exam: EOMI, Normal appearance, PERRL Pupil Exam: NORMAL ACCOMODATION, PERRL - ENT Exam ENT Exam: Mucous Membranes Moist, Normal Exam - Neck Exam Neck Exam: Full ROM, Normal Inspection. absent: Lymphadenopathy - Respiratory Exam Respiratory Exam: Decreased Breath Sounds - Cardiovascular Exam Cardiovascular Exam: REGULAR RHYTHM, +S1 - GI/Abdominal Exam GI & Abdominal Exam: Soft, Diminished Bowel Sounds - Rectal Exam Rectal Exam: Deferred
--- NOTE | 2016-10-19 16:21 | CON ---
HISTORY OF PRESENT ILLNESS: I was contacted regarding an 86-year-old individual who reportedly had a change in mental status with severe hyponatremia. A CT of the brain showed a tiny either subarachnoid or traumatic subarachnoid hemorrhage in the right frontotemporal region of absolutely no clinical significance. I recommended simply repeating the CAT scan in the morning obviously again as there is no neurosurgical involvement required in this patient. Swapnil Pacheco MD cc:
[2016-10-20 06:52] LABS: BASO # 0.1 K/uL (0.0-0.2); BASO % 0.5 % (0.0-2.0); EOS % 0.1 % (0.0-4.0); HEMOGLOBIN 12.3 g/dL (11.0-16.0); LYMPH # 0.8 K/uL (1.0-4.3); LYMPH % 6.7 % (20.0-40.0); MEAN CELL VOLUME 87.4 fL (81.0-99.0); MEAN CORPUSCULAR HEMOGLOBIN 28.1 pg (27.0-31.0); MEAN CORPUSCULAR HGB CONC 32.1 g/dL (33.0-37.0); MEAN PLATELET VOLUME 7.7 fL (7.2-11.7); MONO # 0.7 K/uL (0.0-0.8); MONO % 5.8 % (0.0-10.0); NEUT # 10.4 K/uL (1.8-7.0); NEUT % 86.9 % (50.0-75.0); PLATELET COUNT 313 K/uL (130-400); RBC 4.38 Mil/uL (3.80-5.20); RED CELL DISTRIBUTION WIDTH 13.4 % (11.5-14.5)
[2016-10-20 07:08] LABS: ALB/GLOB RATIO 0.9 (1.0-2.1); ALBUMIN 3.6 g/dL (3.5-5.0); ALT/SGPT 33 U/L (9-52); AST/SGOT 51 U/L (14-36); BLOOD UREA NITROGEN 26 mg/dL (7-17); CALCIUM 8.1 mg/dl (8.6-10.4); GFR AFRICAN-AMERICAN > 60; GFR NON-AFRICAN AMERICAN > 60; MAGNESIUM 2.2 mg/dL (1.6-2.3)
[2016-10-20 08:57] LABS: LYMPHOCYTE 8 % (20-40); MONOCYTE 3 % (0-10); NEUTROPHIL 89 % (50-75); PLATELET ESTIMATE NORMAL (NORMAL); TOTAL CELLS COUNTED 100
--- NOTE | 2016-10-20 17:26 | CP.PCM.PN ---
Subjective - Date & Time of Evaluation Date of Evaluation: 10/20/16 Time of Evaluation: 09:00 - Subjective Subjective: clinically same Objective - Vital Signs/Intake and Output Vital Signs (last 24 hours): Temp Pulse Resp BP Pulse Ox 99.6 F 100 H 18 138/79 98 10/20/16 17:01 10/20/16 17:01 10/20/16 17:01 10/20/16 17:01 10/20/16 17:01 Intake and Output: 10/20/16 10/20/16 06:59 18:59 Intake Total 480 500 Output Total 345 25 Balance 135 475 - Labs Labs: 10/20/16 06:43 10/20/16 06:43 PT 12.2 SECONDS (9.7-12.2) 10/16/16 18:35 INR 1.1 10/16/16 18:35 APTT 34 SECONDS (21-34) 10/16/16 18:35 - Constitutional Appears: Well - Head Exam Head Exam: ATRAUMATIC, NORMAL INSPECTION, NORMOCEPHALIC - Eye Exam Eye Exam: EOMI, Normal appearance, PERRL Pupil Exam: NORMAL ACCOMODATION, PERRL - ENT Exam ENT Exam: Mucous Membranes Moist, Normal Exam - Neck Exam Neck Exam: Full ROM, Normal Inspection. absent: Lymphadenopathy - Respiratory Exam Respiratory Exam: Decreased Breath Sounds - Cardiovascular Exam Cardiovascular Exam: REGULAR RHYTHM, +S1, +S2 - GI/Abdominal Exam GI & Abdominal Exam: Soft, Diminished Bowel Sounds - Rectal Exam Rectal Exam: Deferred
[2016-10-21 07:35] LABS: BASO % 0.2 % (0.0-2.0); EOS % 0.3 % (0.0-4.0); HEMOGLOBIN 12.2 g/dL (11.0-16.0); LYMPH # 0.9 K/uL (1.0-4.3); LYMPH % 9.4 % (20.0-40.0); MEAN CELL VOLUME 87.1 fL (81.0-99.0); MEAN CORPUSCULAR HEMOGLOBIN 29.4 pg (27.0-31.0); MEAN CORPUSCULAR HGB CONC 33.8 g/dL (33.0-37.0); MEAN PLATELET VOLUME 8.1 fL (7.2-11.7); MONO # 0.9 K/uL (0.0-0.8); MONO % 9.1 % (0.0-10.0); NEUT # 7.7 K/uL (1.8-7.0); PLATELET COUNT 361 K/uL (130-400); RBC 4.15 Mil/uL (3.80-5.20); RED CELL DISTRIBUTION WIDTH 13.5 % (11.5-14.5); WHITE BLOOD COUNT 9.5 K/uL (4.8-10.8)
[2016-10-21 08:00] LABS: ALBUMIN 3.5 g/dL (3.5-5.0)
[2016-10-21 08:03] LABS: ALB/GLOB RATIO 0.9 (1.0-2.1); AST/SGOT 40 U/L (14-36); BLOOD UREA NITROGEN 33 mg/dL (7-17); GFR AFRICAN-AMERICAN > 60; GFR NON-AFRICAN AMERICAN > 60
[2016-10-21 08:04] LABS: ALT/SGPT 40 U/L (9-52); CALCIUM 8.4 mg/dl (8.6-10.4); MAGNESIUM 2.6 mg/dL (1.6-2.3)
[2016-10-21 08:40] LABS: BANDS 7 % (0-2); EOSINOPHIL 1 % (0-4); LYMPHOCYTE 13 % (20-40); MONOCYTE 14 % (0-10); MYELOCYTE 1 % (0-0); NEUTROPHIL 64 % (50-75); PLATELET ESTIMATE NORMAL (NORMAL); TOTAL CELLS COUNTED 100
[2016-10-21 08:41] LABS: OVALOCYTES SLIGHT
--- NOTE | 2016-10-21 15:13 | CP.PCM.CON ---
History of Present Illness - History of Present Illness History of Present Illness: Palliative consult Requested by Thierno escalona MD Reason: Goals of care discussion Patient is a 86 yo lady who arrived from [place] 6 months ago to stay with her family. On the patient sustained fall in the kitchen, hitting her face . per family, during the day, patient become less responsive. prior to this, patient was functional in the house and was ambulating without assisting devices. per grand daughter at bed side, patient had two falls in the last two days. The last fall was the worst one. The initial Ct head was significant for subdural bleeding, whle the 3rd CT scan showed slight decrease in bleeding. per family, patient become more responsive but not to the level of prior to injury. PMH: No history reported Review of Systems - Review of Systems Systems not reviewed;Unavailable: Altered Mental Status All systems: reviewed and no additional remarkable complaints except Review of Systems: ROS obtained from nursing. No events over night. Family sees more alertness in patient. Past Patient History - Past Medical History & Family History Past Medical History?: No - Past Social History Smoking Status: Never Smoked - CARDIAC Hx Hypertension: Yes - PULMONARY Hx Respiratory Disorders: No - NEUROLOGICAL Hx Neurological Disorder: Yes Hx Syncope: Yes - HEENT Hx HEENT Problems: No - RENAL Hx Chronic Kidney Disease: No - ENDOCRINE/METABOLIC Hx Endocrine Disorders: No - HEMATOLOGICAL/ONCOLOGICAL Hx Blood Disorders: No - INTEGUMENTARY Hx Dermatological Problems: No - MUSCULOSKELETAL/RHEUMATOLOGICAL Hx Musculoskeletal Disorders: Yes Hx Falls: Yes - GASTROINTESTINAL Hx Gastrointestinal Disorders: No - GENITOURINARY/GYNECOLOGICAL Hx Genitourinary Disorders: No - PSYCHIATRIC Hx Substance Use: No - SURGICAL HISTORY Hx Surgeries: No - ANESTHESIA Hx Anesthesia: No Meds Allergies/Adverse Reactions: Allergies Allergy/AdvReac Type Severity Reaction Status Date / Time No Known Allergies Allergy Verified 10/16/16 17:58 Physical Exam - Constitutional Appears: In Acute Distress - Head Exam Head Exam: ATRAUMATIC, NORMAL INSPECTION, NORMOCEPHALIC - Eye Exam Eye Exam: EOMI, Normal appearance, PERRL Pupil Exam: NORMAL ACCOMODATION, PERRL - ENT Exam ENT Exam: Mucous Membranes Dry Additional comments: NGT feedings - Neck Exam Neck exam: Positive for: Normal Inspection - Respiratory Exam Respiratory Exam: Decreased Breath Sounds, Rhonchi, NORMAL BREATHING PATTERN - Cardiovascular Exam Cardiovascular Exam: Tachycardia, REGULAR RHYTHM - GI/Abdominal Exam GI & Abdominal Exam: Normal Bowel Sounds, Soft - Rectal Exam Rectal Exam: Deferred - Extremities Exam Extremities exam: Positive for: normal inspection - Back Exam Back exam: NORMAL INSPECTION - Neurological Exam Neurological exam: Altered - Psychiatric Exam Psychiatric exam: Flat Affect - Skin Skin Exam: Normal Color, Warm Results - Vital Signs Recent Vital Signs: Last Vital Signs Temp 97.3 F L 10/21/16 07:55 Pulse 103 H 10/21/16 07:55 Resp 22 10/21/16 07:55 BP 145/85 10/21/16 07:55 Pulse Ox 96 10/21/16 07:55 - Labs Result Diagrams: 10/21/16 07:15 10/21/16 07:15 Labs: Laboratory Results - last 24 hr 10/21/16 10/21/16 07:15 07:15 WBC 9.5 RBC 4.15 Hgb 12.2 Hct 36.1 MCV 87.1 MCH 29.4 MCHC 33.8 RDW 13.5 Plt Count 361 MPV 8.1 Neut % (Auto) 81.0 H Lymph % (Auto) 9.4 L [place] % (Auto) 9.1 Eos % (Auto) 0.3 Baso % (Auto) 0.2 Neut # 7.7 H Lymph # 0.9 L [place] # 0.9 H Eos # 0.0 Baso # 0.0 Neutrophils % (Manual) 64 Band Neutrophils % 7 H Lymphocytes % (Manual) 13 L Monocytes % (Manual) 14 H Eosinophils % (Manual) 1 Myelocytes % 1 H Platelet Estimate Normal Ovalocytes Slight Sodium 138 Potassium 3.9 Chloride 96 L Carbon Dioxide 28 Anion Gap 18 BUN 33 H Creatinine 0.7 Est GFR ( Amer) > 60 Est GFR (Non-Af Amer) > 60 Random Glucose 249 H Calcium 8.4 L Phosphorus 2.7 Magnesium 2.6 H Total Bilirubin 0.7 AST 40 H D ALT 40 Alkaline Phosphatase 89 Total Protein 7.4 Albumin 3.5 Globulin 3.9 Albumin/Globulin Ratio 0.9 L Assessment & Plan - Assessment and Plan (Free Text) Assessment: Palliative consult Code status DNR/DNI, no advance directive/ POLST on chart I reviewed medical records, all diagnostic studies, examined patient in the bed and discussed goals of care with patient's son at bed side. Patient is lethargic, sleeping in the bed, did not respond to sternal rub or verbal stimuli. However, family reports that patient was responsive to them much more today than on the day of injury. The bruise on the right forehead is minimal. Lungs are congested. There is moist cough. NGT in place for feedings. All meds were dcd. Abdomen is soft, positive bowel sounds, skin worm and intact, there is no pedal edema. WBC 9.5, Hb 12.2, Na 138. BP 145/85, HR 103, O2Sat 96 % NC All systems were reviewed and are negative except mentioned above. Goals of care discussed with son at bed side. The son is concerned with his mother's condition but is full of hope that she will recover. I supported him. I also reviewed the latest CT head reports with slight improvement . Son was happy to hear it. Further we discussed patient's mental status and her inability to swallow. I corrected his knowledge that NGTfeeding was not meant for long-term use and in case that due to AMS his mother is not able to PO feed , she may need a PEG. He agreed with it. Placement post hospitalization was discussed as well. The son reports multiple family members and believes they would be able to support his mother at home. The son understands that patient may need some period of PT if her condition improves and she was able to participate in PT. Impression * patient is acutely ill with subarchnoid bleeding * Altered mental status, unable to fallow commends * At risk for aspiration; NGT with feedings on * Family is looking forward improvement and discharge home * Son agreed with PEG if it may become a need Suggestion * Aspiration precautions * Would consider CXR for congested breath sounds to R/O Pneumonia * based on mental status, the way of feeding should be defined; PO vs PEG * Will meet with family in am to complete POLST Thank yo very much for the consult
--- NOTE | 2016-10-21 20:14 | CP.PCM.PN ---
Subjective - Date & Time of Evaluation Date of Evaluation: 10/21/16 Time of Evaluation: 10:00 - Subjective Subjective: clinically same Objective - Vital Signs/Intake and Output Vital Signs (last 24 hours): Temp Pulse Resp BP Pulse Ox 99.1 F 108 H 20 143/87 99 10/21/16 18:00 10/21/16 15:00 10/21/16 15:00 10/21/16 15:00 10/21/16 15:00 Intake and Output: 10/21/16 10/22/16 18:59 06:59 Intake Total 420 Output Total 250 Balance 170 - Medications Medications: Current Medications Acetaminophen (Tylenol 650 Mg Supp) 650 mg [place] Q4 PRN PRN Reason: Fever >100.4 F Last Admin: 10/21/16 17:08 Dose: 650 mg - Labs Labs: 10/21/16 07:15 10/21/16 07:15 PT 12.2 SECONDS (9.7-12.2) 10/16/16 18:35 INR 1.1 10/16/16 18:35 APTT 34 SECONDS (21-34) 10/16/16 18:35 - Constitutional Appears: Well - Head Exam Head Exam: ATRAUMATIC, NORMAL INSPECTION, NORMOCEPHALIC - Eye Exam Eye Exam: EOMI, Normal appearance, PERRL Pupil Exam: NORMAL ACCOMODATION, PERRL - ENT Exam ENT Exam: Mucous Membranes Moist, Normal Exam - Neck Exam Neck Exam: Full ROM, Normal Inspection. absent: Lymphadenopathy - Respiratory Exam Respiratory Exam: Decreased Breath Sounds - Cardiovascular Exam Cardiovascular Exam: REGULAR RHYTHM, +S1, +S2 - GI/Abdominal Exam GI & Abdominal Exam: Soft, Diminished Bowel Sounds - Rectal Exam Rectal Exam: Deferred
--- NOTE | 2016-10-22 11:46 | CP.PCM.CON ---
History of Present Illness - History of Present Illness History of Present Illness: INFECTIOUS DISEASE CONSULT; HPI; 86-year-old female with PMH of hypertension who presented to [facility] ER on 10/16/16 for evaluation of altered mental status. Patient had a mechanical fall at home in her kitchen resulting in contusion to the right side of her face and worsening mental status. Patient was brought to the ER and CAT scan of the head showed subarachnoid hemorrhage. Patient was also found to be hyponatremic and hypokalemic. Neurosurgery consult was obtained. Patient was observed in ICU. Patient presently transferred to the general medical floor. Repeat CT scans of the head on 10/18/16 showed interval increase in bilateral subdural hygroma with decreasing amount of subarachnoid hemorrhage. Patient presently DNR/ DNI as she has regained improved mental status and follow commands but not baseline. Infectious disease consultation requested by PMD yesterday as patient spiking fevers up to 101.7. Pt has a Miguel catheter in place. History obtained mainly from the chart as patient unable to give details. Chest x-ray 10/18/16 showed right base atelectasis/pneumonia and a small right pleural effusion. PMH: HTN Surgical History: No Surg Hx Family History: States: Unknown Family Hx - Social History Hx Alcohol Use: No Hx Substance Use: No - Immunization History Hx Tetanus Toxoid Vaccination: No Hx Influenza Vaccination: No Hx Pneumococcal Vaccination: No Allergy; NKA Review of Systems - Review of Systems Systems not reviewed;Unavailable: Altered Mental Status Past Patient History - Past Medical History & Family History Past Medical History?: No - Past Social History Smoking Status: Never Smoked - CARDIAC Hx Hypertension: Yes - PULMONARY Hx Respiratory Disorders: No - NEUROLOGICAL Hx Neurological Disorder: Yes Hx Syncope: Yes - HEENT Hx HEENT Problems: No - RENAL Hx Chronic Kidney Disease: No - ENDOCRINE/METABOLIC Hx Endocrine Disorders: No - HEMATOLOGICAL/ONCOLOGICAL Hx Blood Disorders: No - INTEGUMENTARY Hx Dermatological Problems: No - MUSCULOSKELETAL/RHEUMATOLOGICAL Hx Musculoskeletal Disorders: Yes Hx Falls: Yes - GASTROINTESTINAL Hx Gastrointestinal Disorders: No - GENITOURINARY/GYNECOLOGICAL Hx Genitourinary Disorders: No - PSYCHIATRIC Hx Substance Use: No - SURGICAL HISTORY Hx Surgeries: No - ANESTHESIA Hx Anesthesia: No Meds Allergies/Adverse Reactions: Allergies Allergy/AdvReac Type Severity Reaction Status Date / Time No Known Allergies Allergy Verified 10/16/16 17:58 - Medications Medications: Current Medications Acetaminophen (Tylenol 650 Mg Supp) 650 mg [place] Q4 PRN PRN Reason: Fever >100.4 F Last Admin: 10/22/16 08:54 Dose: 650 mg Ceftriaxone Sodium 1 gm/ (Sodium Chloride) 100 mls @ 100 mls/hr IVPB DAILY RETA Last Admin: 10/22/16 10:45 Dose: 100 mls/hr Physical Exam - Constitutional Appears: No Acute Distress, Cachectic - Head Exam Head Exam: NORMAL INSPECTION - Eye Exam Eye Exam: PERRL Pupil Exam: Unequal - ENT Exam ENT Exam: Mucous Membranes Dry - Neck Exam Neck exam: Positive for: Normal Inspection - Respiratory Exam Respiratory Exam: Decreased Breath Sounds (rt. base.) - Cardiovascular Exam Cardiovascular Exam: REGULAR RHYTHM, +S1, +S2 - GI/Abdominal Exam GI & Abdominal Exam: Normal Bowel Sounds, Soft. absent: Tenderness - Extremities Exam Extremities exam: Positive for: pedal pulses present. Negative for: calf tenderness, pedal edema - Neurological Exam Neurological exam: Altered (neuro status unable to access.) Results - Vital Signs Recent Vital Signs: Last Vital Signs Temp 101.7 F H 10/22/16 07:49 Pulse 111 H 10/22/16 07:49 Resp 20 10/22/16 07:49 BP 146/83 10/22/16 07:49 Pulse Ox 96 10/22/16 07:49 - Labs Result Diagrams: 10/21/16 07:15 10/21/16 07:15 - Imaging and Cardiology Chest x-ray Status: Report reviewed by me (chest x-ray 10/18/16 right base atelectasis/ pneumonia. Small right pleural effusion.) Assessment & Plan (1) Fever Assessment and Plan: NEW FEVER-SOURCE -ASPIRATION PNEUMONIA/ VS UTI ?CENTRAL . PANCULTURES UA AND URINE CULTURES. ESR CRP. START iv ROCEPHIN 1 G EVERY 24 HOURLY FOR NOW 10/21/16. FOLLOW-UP CULTURES. fOLLOW FEVER CURVE. Status: Acute (2) Traumatic subarachnoid hemorrhage Assessment and Plan: REPEAT ct SCAN HEAD 10/18/16. iNTERVAL INCREASE IN BILATERAL SUBDURAL HYGROMAS. dECREASED AMOUNT OF SUBARACHNOID HEMORRHAGE ( SEE DETAILS IN REPORT ) 6 PT DNR/DNI. Status: Acute (3) Hyponatremia Assessment and Plan: IMPROVED. NA 138 0N 10/21/16. Status: Acute (4) Uncontrolled hypertension Status: Acute
--- NOTE | 2016-10-22 14:39 | CP.PCM.PN ---
Subjective - Date & Time of Evaluation Date of Evaluation: 10/22/16 Time of Evaluation: 08:00 - Subjective Subjective: clinically same Objective - Vital Signs/Intake and Output Vital Signs (last 24 hours): Temp Pulse Resp BP Pulse Ox 100.2 F H 104 H 22 133/85 100 10/22/16 12:00 10/22/16 12:00 10/22/16 12:00 10/22/16 12:00 10/22/16 12:00 Intake and Output: 10/22/16 10/22/16 06:59 18:59 Intake Total 890 Output Total 500 300 Balance 390 -300 - Medications Medications: Current Medications Acetaminophen (Tylenol 650 Mg Supp) 650 mg [place] Q4 PRN PRN Reason: Fever >100.4 F Last Admin: 10/22/16 08:54 Dose: 650 mg Ceftriaxone Sodium 1 gm/ (Sodium Chloride) 100 mls @ 100 mls/hr IVPB DAILY RETA Last Admin: 10/22/16 10:45 Dose: 100 mls/hr - Labs Labs: 10/21/16 07:15 10/21/16 07:15 PT 12.2 SECONDS (9.7-12.2) 10/16/16 18:35 INR 1.1 10/16/16 18:35 APTT 34 SECONDS (21-34) 10/16/16 18:35 - Constitutional Appears: Well - Head Exam Head Exam: ATRAUMATIC, NORMAL INSPECTION, NORMOCEPHALIC - Eye Exam Eye Exam: EOMI, Normal appearance, PERRL Pupil Exam: NORMAL ACCOMODATION, PERRL - ENT Exam ENT Exam: Mucous Membranes Moist, Normal Exam - Neck Exam Neck Exam: Full ROM, Normal Inspection. absent: Lymphadenopathy - Respiratory Exam Respiratory Exam: Decreased Breath Sounds - Cardiovascular Exam Cardiovascular Exam: REGULAR RHYTHM, +S1, +S2 - GI/Abdominal Exam GI & Abdominal Exam: Soft, Diminished Bowel Sounds - Rectal Exam Rectal Exam: Deferred
--- NOTE | 2016-10-23 13:08 | CP.PCM.PN ---
Subjective - Date & Time of Evaluation Date of Evaluation: 10/23/16 Time of Evaluation: 08:00 - Subjective Subjective: clinically same Objective - Vital Signs/Intake and Output Vital Signs (last 24 hours): Temp Pulse Resp BP Pulse Ox 98.0 F 120 H 22 138/81 96 10/23/16 08:14 10/23/16 08:14 10/23/16 08:14 10/23/16 08:14 10/23/16 08:14 Intake and Output: 10/23/16 10/23/16 06:59 18:59 Intake Total 840 Output Total 600 Balance 240 - Medications Medications: Current Medications Acetaminophen (Tylenol 650 Mg Supp) [address] Q4 PRN PRN Reason: Fever >100.4 F Last Admin: 10/22/16 08:54 Dose: 650 mg Ceftriaxone Sodium 1 gm/ (Sodium Chloride) 100 mls @ 100 mls/hr IVPB DAILY RETA Last Admin: 10/23/16 09:37 Dose: 100 mls/hr - Labs Labs: 10/21/16 07:15 10/21/16 07:15 PT 12.2 SECONDS (9.7-12.2) 10/16/16 18:35 INR 1.1 10/16/16 18:35 APTT 34 SECONDS (21-34) 10/16/16 18:35 - Constitutional Appears: Well - Head Exam Head Exam: ATRAUMATIC, NORMAL INSPECTION, NORMOCEPHALIC - Eye Exam Eye Exam: EOMI, Normal appearance, PERRL Pupil Exam: NORMAL ACCOMODATION, PERRL - ENT Exam ENT Exam: Mucous Membranes Moist, Normal Exam - Neck Exam Neck Exam: Full ROM, Normal Inspection. absent: Lymphadenopathy - Respiratory Exam Respiratory Exam: Decreased Breath Sounds - Cardiovascular Exam Cardiovascular Exam: REGULAR RHYTHM, +S1, +S2 - GI/Abdominal Exam GI & Abdominal Exam: Soft, Diminished Bowel Sounds - Rectal Exam Rectal Exam: Deferred
--- NOTE | 2016-10-23 22:16 | CP.PCM.PN ---
Subjective - Date & Time of Evaluation Date of Evaluation: 10/23/16 Time of Evaluation: 22:16 - Subjective Subjective: INTERMITTENT FEVERS.T MAX 101.3 UNRESPONSIVE TO VERBAL STIMULI TACHYCARDIC PER FAMILY MEMBERS, PATIENT NOT RESPONDING MUCH BEFORE. ON NGT fEEDINGS Objective - Vital Signs/Intake and Output Vital Signs (last 24 hours): Temp Pulse Resp BP Pulse Ox 98.7 F 118 H 20 123/79 96 10/23/16 16:00 10/23/16 16:00 10/23/16 16:00 10/23/16 16:00 10/23/16 16:00 Intake and Output: 10/23/16 10/24/16 18:59 06:59 Intake Total 420 420 Output Total 350 Balance 70 420 - Medications Medications: Current Medications Acetaminophen (Tylenol 650 Mg Supp) 650 mg [place] Q4 PRN PRN Reason: Fever >100.4 F Last Admin: 10/22/16 08:54 Dose: 650 mg Ceftriaxone Sodium 1 gm/ (Sodium Chloride) 100 mls @ 100 mls/hr IVPB DAILY RETA Last Admin: 10/23/16 09:37 Dose: 100 mls/hr - Labs Labs: 10/21/16 07:15 10/21/16 07:15 PT 12.2 SECONDS (9.7-12.2) 10/16/16 18:35 INR 1.1 10/16/16 18:35 APTT 34 SECONDS (21-34) 10/16/16 18:35 - Constitutional Appears: No Acute Distress, Cachectic - Head Exam Head Exam: NORMAL INSPECTION - Eye Exam Eye Exam: PERRL - ENT Exam ENT Exam: Mucous Membranes Moist - Neck Exam Neck Exam: Normal Inspection - Respiratory Exam Respiratory Exam: Decreased Breath Sounds (BASES) - Cardiovascular Exam Cardiovascular Exam: Tachycardia, REGULAR RHYTHM, +S1, +S2 - GI/Abdominal Exam GI & Abdominal Exam: Soft, Normal Bowel Sounds - Extremities Exam Extremities Exam: Normal Capillary Refill. absent: Calf Tenderness, Pedal Edema - Neurological Exam Neurological Exam: Altered - Psychiatric Exam Psychiatric exam: Normal Mood - Skin Skin Exam: Normal Color, Warm Assessment and Plan (1) Fever Assessment & Plan: BLOOD CULTURES 10/21/16 NEGATIVE FOR 24 HOURS CONTINUE iv ANTIBIOTICS FOR NOW. PATIENT ON iv ROCEPHIN 1 G ONCE A DAY DAILY. Status: Acute (2) Pneumonia Assessment & Plan: F/U CXR ON TUESDAY, CONTINUE IV ROCEPHIN 1GM IV QD DAILY. Status: Acute (3) Traumatic subarachnoid hemorrhage Assessment & Plan: PT DNR/DNI. CONTINUE CONSERVATIVE APPROACH Status: Acute (4) Hyponatremia Assessment & Plan: IMPROVING Status: Acute (5) Uncontrolled hypertension Status: Acute
--- NOTE | 2016-10-24 12:29 | CP.PCM.PN ---
Subjective - Date & Time of Evaluation Date of Evaluation: 10/24/16 Time of Evaluation: 09:00 - Subjective Subjective: clinically same Objective - Vital Signs/Intake and Output Vital Signs (last 24 hours): Temp Pulse Resp BP Pulse Ox 98.0 F 120 H 20 123/77 96 10/24/16 08:14 10/24/16 08:14 10/24/16 08:14 10/24/16 08:14 10/24/16 08:14 Intake and Output: 10/24/16 10/24/16 06:59 18:59 Intake Total 840 Output Total 600 Balance 240 - Medications Medications: Current Medications Acetaminophen (Tylenol 650 Mg Supp) 650 mg [place] Q4 PRN PRN Reason: Fever >100.4 F Last Admin: 10/24/16 00:50 Dose: 650 mg Ceftriaxone Sodium 1 gm/ (Sodium Chloride) 100 mls @ 100 mls/hr IVPB DAILY RETA Last Admin: 10/24/16 09:48 Dose: 100 mls/hr - Labs Labs: 10/21/16 07:15 10/21/16 07:15 PT 12.2 SECONDS (9.7-12.2) 10/16/16 18:35 INR 1.1 10/16/16 18:35 APTT 34 SECONDS (21-34) 10/16/16 18:35 - Constitutional Appears: Well - Head Exam Head Exam: ATRAUMATIC, NORMAL INSPECTION, NORMOCEPHALIC - Eye Exam Eye Exam: EOMI, Normal appearance, PERRL Pupil Exam: NORMAL ACCOMODATION, PERRL - ENT Exam ENT Exam: Mucous Membranes Moist, Normal Exam - Neck Exam Neck Exam: Full ROM, Normal Inspection. absent: Lymphadenopathy - Respiratory Exam Respiratory Exam: Decreased Breath Sounds - Cardiovascular Exam Cardiovascular Exam: REGULAR RHYTHM, +S1, +S2. absent: Murmur - GI/Abdominal Exam GI & Abdominal Exam: Soft, Diminished Bowel Sounds - Rectal Exam Rectal Exam: Deferred
[2016-10-25 08:53] VITALS: O2SAT 95
--- NOTE | 2016-10-25 10:53 | PCM.RRTMUL ---
POT BUILDER Nurses Assessment - Situation POT BUILDER Responder Arrival Time:: 10:32 - Vital Signs Blood Pressure:: 81/60 Pulse Rate:: 130 Respiratory Rate:: 22 Temperature:: 100.7 F I.Reason for POT BUILDER - A) Acute Change in Patient: (Select all that apply): Staff member or family is worried about patient ( tachycardia) - A) Initial Vital Signs: Blood Pressure: 98/61 Pulse Rate: 125 Respiratory Rate: 20 Temperature: 98.2 F O2 Sat by Pulse Oximetry: 91 - B) Neurological Status (Select all that apply): Lethargic - C) Respiratory Oxygen Delivery Method: Nasal Cannula @L/min - Constitutional Appears: Cachectic, Chronically Ill - Eyes Eye Exam: PERRL - Respiratory Exam Respiratory Exam: Accessory Muscle Use, Decreased Breath Sounds. absent: Rhonchi - Cardiovascular Exam Cardiovascular Exam: Tachycardia, +S1, +S2 - GI/Abdominal Exam GI & Abdominal Exam: Soft. absent: Distended - Neurological Exam Neurological Exam: Altered, Awake. absent: Alert, Oriented x3 - Extremities Exam Extremities Exam: absent: Pedal Edema Plan - A. End of POT BUILDER Vital Signs: Blood Pressure: 98/61 Pulse Rate: 140 Respiratory Rate: 20 Temperature: 98.2 F O2 Sat by Pulse Oximetry: 91 - B. Assessment of Findings&Treatment Plan Rapid response called at 10:31am for tachycardia. HR for patient has been 120- 140. This is 86 year old female admitted on 10/16/16 s/p fall at home and found to have subdural hemorrhage on admission as seen on CT. Patient is lethargic, has PEG tube and does not answer to touch or verbal stimuli, which is unchanged from days prior. Dr. Ketty Joy discussed with patient's son patient's symptoms and worsening condition. Attending discussed medication options to improve heart rate with son and explained the side effects of these medications. Son does not want treatment at this time. Palliative consult on board and following. Recommend POLST and goals of care to be re-established for this patient in light of decompensating condition.
[2016-10-25 10:54] VITALS: BP 98/61; RESP 20; TEMP 98.2
[2016-10-25 10:55] VITALS: PULSE 140
[2016-10-25] MEDS ORDERED: Morphine 4 MG/ML VIAL IVP STA (10:59)
[2016-10-25] MEDS ORDERED: Morphine 4 MG/ML VIAL IVP PRN (11:00)
--- NOTE | 2016-10-25 12:19 | CP.PCM.PN ---
Subjective - Date & Time of Evaluation Date of Evaluation: 10/25/16 Time of Evaluation: 12:17 - Subjective Subjective: Patient is in severally ill, in respiratory distress, looking lethargic. I was called from the floor to meet with family again, as they questioned the proceeding to a comfort care only . Objective - Vital Signs/Intake and Output Vital Signs (last 24 hours): Temp Pulse Resp BP Pulse Ox 98.2 F 140 H 20 98/61 L 95 10/25/16 11:10 10/25/16 11:10 10/25/16 11:10 10/25/16 11:10 10/25/16 08:51 Intake and Output: 10/25/16 10/25/16 06:59 18:59 Intake Total 840 Output Total 400 Balance 440 - Medications Medications: Current Medications Acetaminophen (Tylenol 650 Mg Supp) 650 mg MT Q4 PRN PRN Reason: Fever >100.4 F Last Admin: 10/25/16 08:16 Dose: 650 mg Morphine Sulfate (Morphine) 2 mg IVP Q1H PRN PRN Reason: Pain, severe (8-10) - Labs Labs: 10/21/16 07:15 10/21/16 07:15 PT 12.2 SECONDS (9.7-12.2) 10/16/16 18:35 INR 1.1 10/16/16 18:35 APTT 34 SECONDS (21-34) 10/16/16 18:35 - Constitutional Appears: In Acute Distress - Head Exam Head Exam: ATRAUMATIC, NORMAL INSPECTION, NORMOCEPHALIC - ENT Exam ENT Exam: Mucous Membranes Dry Additional comments: NGT in for feedings - Neck Exam Neck Exam: Normal Inspection - Respiratory Exam Respiratory Exam: Accessory Muscle Use - Cardiovascular Exam Cardiovascular Exam: Tachycardia - GI/Abdominal Exam GI & Abdominal Exam: Normal Bowel Sounds - Rectal Exam Rectal Exam: Deferred - Extremities Exam Extremities Exam: Normal Inspection - Neurological Exam Neurological Exam: Motor Sensory Deficit Neuro motor strength exam: Left Upper Extremity: 2/1, Right Upper Extremity: 2/1 , Left Lower Extremity: 2/1, Right Lower Extremity: 2/1 - Psychiatric Exam Psychiatric exam: Flat Affect - Skin Skin Exam: Pallor Assessment and Plan - Assessment and Plan (Free Text) Assessment: Patient in acute distress. Breathing is shallow, and agonal occasionally. HR 140 , [id number]% NC, BP 98/65. Patient is lethargic, unresponsive to verbal nor tactile stimuli. Skin is pale. NGT in for feedings. Patient's son at bed side along with his family. The son stated being ready to discuss comfort meassures to assist his mother with natural . He is still very sad for the situation his mother was in, but also does not want her to suffer any more. he feels his mother is dying and wants her to be peaceful. I suppoprted his decision and explained that his mother may need to be given some Morphine for respiratory distress, and that Morphine will reduce her respiratory drive and may speed up the . He stated understanding and agreed. I reviewed the DNR/DNI status . The son agreed with comfort measures only. DARREN signed and copy given to the son. Rufino [employer] OFFICER was to contact Doctor Thierno Joy and update him with the current status of a patient. Impression * This is an actively dying patient in respiratory distress * Patient is lethargic nd unresponsive to stimuli * Family at bedside is advocating for peaceful and would want to donate any of her organs Suggestion * Agree with DNR/DNI * Morphine 2 mg IV for respiratory distress * Hospice evaluation and comfort care only * Would stop NGT, and all diagnostic studies * Would stop IV antibiotics
--- NOTE | 2016-10-25 15:52 | CP.PCM.PN ---
Subjective - Date & Time of Evaluation Date of Evaluation: 10/25/16 Time of Evaluation: 08:00 - Subjective Subjective: clinically same Objective - Vital Signs/Intake and Output Vital Signs (last 24 hours): Temp Pulse Resp BP Pulse Ox 98.2 F 140 H 20 98/61 L 95 10/25/16 11:10 10/25/16 11:10 10/25/16 11:10 10/25/16 11:10 10/25/16 08:51 Intake and Output: 10/25/16 10/25/16 06:59 18:59 Intake Total 840 310 Output Total 400 250 Balance 440 60 - Medications Medications: Current Medications Acetaminophen (Tylenol 650 Mg Supp) 650 mg MT Q4 PRN PRN Reason: Fever >100.4 F Last Admin: 10/25/16 08:16 Dose: 650 mg Morphine Sulfate (Morphine) 2 mg IVP Q1H PRN PRN Reason: Pain, severe (8-10) - Labs Labs: 10/21/16 07:15 10/21/16 07:15 PT 12.2 SECONDS (9.7-12.2) 10/16/16 18:35 INR 1.1 10/16/16 18:35 APTT 34 SECONDS (21-34) 10/16/16 18:35 - Constitutional Appears: Well - Head Exam Head Exam: ATRAUMATIC, NORMAL INSPECTION, NORMOCEPHALIC - Eye Exam Eye Exam: EOMI, Normal appearance, PERRL Pupil Exam: NORMAL ACCOMODATION, PERRL - ENT Exam ENT Exam: Mucous Membranes Moist, Normal Exam - Neck Exam Neck Exam: Full ROM, Normal Inspection. absent: Lymphadenopathy - Respiratory Exam Respiratory Exam: Decreased Breath Sounds - Cardiovascular Exam Cardiovascular Exam: REGULAR RHYTHM, +S1, +S2 - GI/Abdominal Exam GI & Abdominal Exam: Soft, Diminished Bowel Sounds - Rectal Exam Rectal Exam: Deferred
--- NOTE | 2016-10-25 16:01 | CP.PCM.PN ---
Subjective - Date & Time of Evaluation Date of Evaluation: 10/25/16 Time of Evaluation: 11:00 - Subjective Subjective: Patient seen and examined, Patient is severally ill. Pt is lethargic with tachycardia, HR in 140's, in respiratory distress. Family at the bedside. Objective - Vital Signs/Intake and Output Vital Signs (last 24 hours): Temp Pulse Resp BP Pulse Ox 98.2 F 140 H 20 98/61 L 95 10/25/16 11:10 10/25/16 11:10 10/25/16 11:10 10/25/16 11:10 10/25/16 08:51 Intake and Output: 10/25/16 10/25/16 06:59 18:59 Intake Total 840 310 Output Total 400 250 Balance 440 60 - Medications Medications: Current Medications Acetaminophen (Tylenol 650 Mg Supp) 650 mg ND Q4 PRN PRN Reason: Fever >100.4 F Last Admin: 10/25/16 08:16 Dose: 650 mg Morphine Sulfate (Morphine) 2 mg IVP Q1H PRN PRN Reason: Pain, severe (8-10) - Labs Labs: 10/21/16 07:15 10/21/16 07:15 PT 12.2 SECONDS (9.7-12.2) 10/16/16 18:35 INR 1.1 10/16/16 18:35 APTT 34 SECONDS (21-34) 10/16/16 18:35 Assessment and Plan - Assessment and Plan (Free Text) Plan: 86 y/o female admitted here s/p fall 10/16, CT head-s subdural hemorrhage on admission, which unchanged from days prior. Pt lethargic, unresponsive to verbal nor tactile stimuli. Patient's son at the bedside along with his family, agree for comfort measures to assist his mother with natural . Palliative MAT LINKER Selam at the bedside, POLST signed and copy given to the son. Morphine 2 mg IV for respiratory distress, Hospice evaluation and comfort care, stop NGT, IV abx, Dr. Yamil Joy made aware of patient status, he is agree with POC.
--- NOTE | 2016-10-25 17:46 | CP.PCM.PRO ---
Pronouncement of Note - Clinical Findings Physical Exam: No Response Verbal/Painful Stimuli, Absent Peripheral Pulses{ Carotid & Femoral}, Absent Heart & Breath Sounds, No Pupillary Light Reflex, No Corneal Reflex, Pupils Fixed & Dilated, Absence of Vital Signs - Pronouncement Time Time of Pronouncement of : 17:31 - Notifications Pronouncement Notifications: Family Notified, Atending Notified Data Reviewer Notified: No - Autopsy Autopsy Requested: No - [place] [id number]
== END 2016-10-25 20:45 | DRG 85 ==
LOC: C.ER 17:57 → C.9E 19:10 → C.9I 19:33 → C.3T 10-20 16:21
PROVIDERS: ADMIT Internal Medicine Nephrology; ATTEND Internal Medicine Nephrology
DX: S06.6X0A Traumatic subarachnoid hemorrhage without loss of consciousness, initial encounter (principal); J18.9 Pneumonia, unspecified organism; J90 Pleural effusion, not elsewhere classified; E87.1 Hypo-osmolality and hyponatremia; J98.11 Atelectasis; I10 Essential (primary) hypertension; Z66 Do not resuscitate; W18.30XA Fall on same level, unspecified, initial encounter; Z91.81 History of falling; E87.6 Hypokalemia; R40.20 Unspecified coma